=== PATIENT | female | born 1935 | race Caucasian/White ===

== ENCOUNTER 2016-10-27 16:01 | Emergency (ER) | payer MEDICARE, OTHER ==
[2016-10-27 16:23] VITALS: BP 152/98
[2016-10-27] MEDS ORDERED: DIPHTH,PERTUSS(ACELL),TET VAC 0.5 ML VIAL IM ONE ×2 (16:28→18:07)
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
== END 2016-10-27 19:04 | disposition home or self-care (01) ==
LOC: ER 16:01
PROC: 2W3CX1Z Immobilization of Right Lower Arm using Splint (ICD-10-PCS; principal; 2016-10-27)
DX: S52.501A Unspecified fracture of the lower end of right radius, initial encounter for closed fracture (principal); W19.XXXA Unspecified fall, initial encounter; Z23 Encounter for immunization; Z95.5 Presence of coronary angioplasty implant and graft

== ENCOUNTER 2017-10-03 11:55 | Emergency (ER) | payer MEDICARE, OTHER ==
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
[2017-10-03] MEDS ORDERED: ACETAMINOPHEN 500 MG TABLET PO ONE (14:44)
[2017-10-03 15:04] VITALS: BP 120/45
== END 2017-10-03 15:06 | disposition home or self-care (01) ==
LOC: ER 11:55
PROC: 2W3LX1Z Immobilization of Right Lower Extremity using Splint (ICD-10-PCS; principal; 2017-10-03)
DX: W10.1XXA Fall (on)(from) sidewalk curb, initial encounter; Y93.9 Activity, unspecified; S60.222A Contusion of left hand, initial encounter; S00.83XA Contusion of other part of head, initial encounter; S09.90XA Unspecified injury of head, initial encounter; Y92.480 Sidewalk as the place of occurrence of the external cause; Z86.73 Personal history of transient ischemic attack (TIA), and cerebral infarction without residual deficits; S82.034A Nondisplaced transverse fracture of right patella, initial encounter for closed fracture

== ENCOUNTER 2020-04-12 06:27 | Inpatient (IN) ==
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
[2020-04-12 07:37] LABS: Mean Cell Volume 100.3 fl (78-100); Mean Corpuscular Hemoglobin 31.7 pg (27-31); Mean Corpuscular Hgb Conc 31.6 g/dl (32-36); Mean Platelet Volume 11.4 fl (8-12.5); Neutrophil # 7.8 K/mm3 (1.3-6.0); Neutrophil % 76.4 % (42-75.0); Platelet Count 157 K/mm3 (150-450); Red Blood Count 3.79 M/mm3 (4.2-5.4); Red Cell Distribution Width 13.5 % (11.5-14.0); White Blood Count 10.3 K/mm3 (4.0-10.5)
[2020-04-12] MEDS ORDERED: AMPICILLIN SODIUM/SULBACTAM NA 1.5 GM in NORMAL SALINE 100 ML IV SCH (07:45)
[2020-04-12 07:46] LABS: Prothrombin Time (Patient) 10.8 Seconds (9.1-10.7)
[2020-04-12 07:49] LABS: Albumin * 3.4 gm/dl (3.4-5.0); Anion Gap 12.2 mmol/L (6.8-13.8); BUN/Creatinine Ratio 22.2 (9.0-21.6); Bilirubin, Total 0.4 mg/dL (0.0-1.1); Ca. Corrected For Albumin 9.7 mg/dL (8.4-10.2); Calcium * 9.5 mg/dL (7.9-10.9); Carbon Dioxide 30.8 mmol/L (24-32.6); Total Protein 6.9 gm/dL (6.2-8.2)
[2020-04-12 07:51] LABS: INR 1.09 INR (0.92-1.08); Partial Thrombolplastin Time 24.6 Seconds (24-32)
[2020-04-12 08:02] LABS: Urine Bilirubin Negative (NEGATIVE); Urine Blood Negative /ul (NEGATIVE); Urine Ketone Negative (NEGATIVE); Urine Nitrite Negative (NEGATIVE); Urine Protein Negative (NEGATIVE); Urine Specific Gravity >=1.030 SP.GR. (1.005-1.010); Urine Urobilinogen Normal (NORMAL); Urine pH 5.5 pH (5.0-7.0)
[2020-04-12] MEDS ORDERED: ACETAMINOPHEN 1,000 MG/100 ML BTL IV PRN (08:08)
[2020-04-12 08:09] LABS: Urine Appearance Clear (CLEAR); Urine Bacteria TRACE; Urine Color Yellow; Urine RBC None Seen /hpf (0-5); Urine WBC 0-5 /hpf (0-5)
[2020-04-12] MEDS: RINGER'S SOLUTION,LACTATED 1,000 ML IV PRN ×3 (08:12→22:47)
[2020-04-12] MEDS ORDERED: HEPARIN SODIUM,PORCINE 5,000 UNITS/ML VIAL SC SCH (08:15)
--- NOTE | 2020-04-12 09:54 | HP ---
Chief Complaint - Chief Complaint Date of Service: 04/12/20 Time of Service: 08:40 Chief Complaint: Left hip pain after a fall. History of Present Illness: Katheryn Simmons is an 84-year-old female patient of Dr. Saul Garcia DO, who fell at home injuring her left hip. She was brought to ER per EMS where x- rays revealed she has a displaced femoral neck fracture of the hip. A chest x- ray (AP portable) was done. It is a slightly rotated film. However, there is a mass versus pneumonia in the right hilar area. Since she has no clinical signs or symptoms of pneumonia I suspect that this is a mass-effect. She has a history of atrial fibrillation but only takes aspirin. She has had a rise in her creatinine and a fall in her EGFR from her usual baseline. Creatinine is 1.6 and EGFR 32 on admission. She is getting some lactated Ringer's solution and I will recheck that at noon. She needs a CT scan of her chest preferably with contrast but until her kidney function improves I will delay that. Medically, she is very stable and in no distress. She is hard of hearing but understands when she can hear and responds appropriately. Her daughter is here with her and has been a great help in getting her to understand our questions and statements. Orthopedics has been consulted and they plan to take her to surgery tomorrow pending medical clearance. She has been started on heparin 5000 units twice daily. I will also have her put on SCDs while in bed. I have reconciled her medicines. I have held her supplements and her hydrochlorothiazide but allowed her her other morning medicines. Medical History (Last Reviewed 04/12/20 @ 07:16 by Calvin Aquino MD) Hypertension (Chronic) Hypercholesteremia (Chronic) Atrial fibrillation (Inactive) Abdominal aortic aneurysm (Chronic) Vertigo Vertigo, benign paroxysmal Benign paroxysmal positional vertigo Chest pain in adult Contusion of foot, right Facial contusion Hand contusion Head injury Patella fracture Radius fracture Surgical History: Surgical History (Last Reviewed 04/12/20 @ 07:16 by Calvin Aquino MD) History of appendectomy Onset Date: ~1947 History of basal cell carcinoma excision Onset Date: ~2008 History of cataract extraction Onset Date: ~2006 History of colonoscopy Onset Date: ~2003 History of colonoscopy Onset Date: ~2008 History of lumpectomy of right breast Onset Date: ~1977 History of total vaginal hysterectomy (TVH) Onset Date: ~1971 Family History: Family History (Last Reviewed 04/12/20 @ 07:16 by Calvin Aquino MD) Father , age 54 DVT (deep venous thrombosis) Mother , age 96 Hypertension CAD (coronary artery disease) Social History: (Last Reviewed 04/12/20 @ 07:16 by Calvin Aquino MD) Social History: adopted: No group home: No Marital status: lives independently: Yes household members: spouse current occupational 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 Highest education level completed: high school graduate Service: No Tobacco: Smoking Status: Never smoker Alcohol: alcohol intake: never Substance Use: substance use type: does not use Dietary Habits: well-balanced diet: daily or most days caffeine: No Amber/Methodist: special amber needs: No Review Of Systems (GEN) - Review of Systems Generalized/Overall Review: Present: Weakness, Fatigue EENTM: Present: No Symptoms Reported Respiratory: Present: No Symptoms Reported Cardiac: Present: Palpitations Abdominal: Present: No Symptoms Reported Genitourinary: Present: No Symptoms Reported Musculoskeletal: Present: Joint Pain - Due to left hip fracture Neurological: Present: No Symptoms Reported Skin: Present: No Symptoms Reported Endocrine: Present: No Symptoms Reported Immunizations: IMMUNIZATION HX Immunizations Up to Date Yes History of Influenza Vaccine Yes Hx Pneumococcal Vaccination Yes Allergies/Adverse Reactions: Allergies Allergy/AdvReac Type Severity Reaction Status Date / Time ciprofloxacin [From Cipro] Allergy Verified 04/12/20 06:43 ciprofloxacin HCl Allergy Verified 04/12/20 06:43 [From Cipro] Sulfa (Sulfonamide Allergy Verified 04/12/20 06:43 Antibiotics) Home Medications: HOME MEDICATIONS Aspirin 325 mg PO DAILY 07/14/14 [Last Taken 07/14/14] Calc/D3/Mag/Zn/Isadora/Theron/[place] [Calcium 600 mg Plus Vit D Tab] 1 ea PO DAILY 07/14/14 [Last Taken 07/14/14] allopurinol 300 mg tablet 300 mg PO DAILY #90 tab 12/26/19 [Last Taken Unknown] hydrochlorothiazide 25 mg tablet 25 mg PO DAILY #90 tab 12/26/19 [Last Taken Unknown] lisinopril 40 mg tablet 40 mg PO DAILY #90 tab 12/26/19 [Last Taken Unknown] metoprolol tartrate 50 mg tablet 50 mg PO BID #180 tab 12/26/19 [Last Taken Unknown] ferrous sulfate 325 mg (65 mg iron) tablet 325 mg PO DAILY #30 tab 02/26/20 [Last Taken Unknown] Exam - Exam Vital Signs: Vital Signs - Last Taken Temp 36.2 C 04/12/20 08:41 Pulse 85 04/12/20 08:45 Resp 16 04/12/20 08:45 BP 133/51 04/12/20 08:41 Pulse Ox 95 04/12/20 08:45 Constitutional: Present: Alert, Oriented x3, Cooperative, Well developed, Well nourished, No distress, Elderly ENT Exam: Present: normal ENT inspection, hearing grossly normal, pharynx normal, TMs normal Eye Exam: bilateral eye: normal inspection, PERRL, EOMI Neck: Present: non-tender, limited range of motion Back Exam: Present: normal inspection, no CVA tenderness, no vertebral tenderness Breasts: Present: Exam deferred Respiratory: Present: chest non-tender, lungs clear, normal breath sounds, no respiratory distress, no accessory muscle use Cardiovascular/Chest: Present: normal peripheral pulses, no chest tenderness, no edema, no gallop, no JVD, no murmur, no rub, irregularly irregular Peripheral Pulses: carotid (R): 2+, carotid (L): 2+, radial (R): 2+, radial (L): 2+ Abdomen: Present: Normal bowel sounds, soft, nontender, nondistended, no rebound tenderness, no hepatospenomegaly, no masses /Rectal: Present: Exam deferred Extremity: Present: normal capillary refill, other - There is pain on palpation over the left hip and the left leg is shortened and externally rotated Skin Exam: Present: normal color, warm/dry, no cyanosis Lymphatic: Present: no adenopathy Neurologic: 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: 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 tested, normal cerebellar test, no motor/sensory deficits, alert, normal mood/affect, other - Very hard of hearing Appearance: Present: appropriate appearance, appropriate insight, neat Eye contact: Present: cooperative, good eye contact, normal speech Thoughts: Present: normal thought pattern, no apparent hallucination Diagnostic Studies: Abnormal Lab Results 04/12/20 04/12/20 04/12/20 Range/Units 07:25 07:25 07:25 RBC 3.79 L (4.2-5.4) M/mm3 Hgb 12.0 L (12.5-16.0) gm/dL MCV 100.3 H (78-100) fl MCH 31.7 H (27-31) pg MCHC 31.6 L (32-36) g/dl Immature Gran % (Auto) 0.70 H (0.001-0.429) % Immature Gran # (Auto) 0.07 H (0.000-0.0310) K/mm3 Neutrophils % 76.4 H (42-75.0) % Lymphocytes % 12.2 L (20-51) % Eosinophils % 3.4 H (0.0-3.0) % Neutrophils # 7.8 H (1.3-6.0) K/mm3 Lymphocytes # 1.25 L (1.5-3.5) k/mm3 PT 10.8 H (9.1-10.7) Seconds INR (Anticoag Therapy) 1.09 H (0.92-1.08) INR Sodium 144 H (132-142) mmol/L Plasma Sodium 144 H (130-142) mmol/L BUN 36 H (3-23) mg/dL Creatinine 1.62 H D (0.4-1.4) mg/dL Est GFR (Non-Af Amer) 32 L D (60-130) mL/min BUN/Creatinine Ratio 22.2 H (9.0-21.6) Random Glucose 117 H (70-110) mg/dL ALT 12 L (19-67) U/L Laboratory Results WBC 10.3 K/mm3 (4.0-10.5) 04/12/20 07:25 RBC 3.79 M/mm3 (4.2-5.4) L 04/12/20 07:25 Hgb 12.0 gm/dL (12.5-16.0) L 04/12/20 07:25 Hct 38.0 % (37.0-47.0) 04/12/20 07:25 MCV 100.3 fl (78-100) H 04/12/20 07:25 MCH 31.7 pg (27-31) H 04/12/20 07:25 MCHC 31.6 g/dl (32-36) L 04/12/20 07:25 RDW 13.5 % (11.5-14.0) 04/12/20 07:25 Plt Count 157 K/mm3 (150-450) 04/12/20 07:25 MPV 11.4 fl (8-12.5) 04/12/20 07:25 Immature Gran % (Auto) 0.70 % (0.001-0.429) H 04/12/20 07:25 Immature Gran # (Auto) 0.07 K/mm3 (0.000-0.0310) H 04/12/20 07:25 Neutrophils % 76.4 % (42-75.0) H 04/12/20 07:25 Lymphocytes % 12.2 % (20-51) L 04/12/20 07:25 Monocytes % 6.8 % (0.0-9) 04/12/20 07:25 Eosinophils % 3.4 % (0.0-3.0) H 04/12/20 07:25 Basophils % 0.5 % (0.0-1.0) 04/12/20 07:25 Nucleated RBC % 0.0 k/mm3 (0-1) 04/12/20 07:25 Neutrophils # 7.8 K/mm3 (1.3-6.0) H 04/12/20 07:25 Lymphocytes # 1.25 k/mm3 (1.5-3.5) L 04/12/20 07:25 Monocytes # 0.7 k/mm3 (0.0-1.0) 04/12/20 07:25 Eosinophils # 0.4 k/mm3 (0.0-0.7) 04/12/20 07:25 Absolute Basophils 0.1 k/mm3 (0.0-0.1) 04/12/20 07:25 PT 10.8 Seconds (9.1-10.7) H 04/12/20 07:25 INR (Anticoag Therapy) 1.09 INR (0.92-1.08) H 04/12/20 07:25 PTT ([place]) 24.6 Seconds (24-32) 04/12/20 07:25 Sodium 144 mmol/L (132-142) H 04/12/20 07:25 Plasma Sodium 144 mmol/L (130-142) H 04/12/20 07:25 Potassium 4.0 mmol/L (3.4-4.6) 04/12/20 07:25 Chloride 105 mmol/L (97-106) 04/12/20 07:25 Carbon Dioxide 30.8 mmol/L (24-32.6) 04/12/20 07:25 Anion Gap 12.2 mmol/L (6.8-13.8) 04/12/20 07:25 BUN 36 mg/dL (3-23) H 04/12/20 07:25 Creatinine 1.62 mg/dL (0.4-1.4) H D 04/12/20 07:25 Est GFR (Non-Af Amer) 32 mL/min (60-130) L D 04/12/20 07:25 BUN/Creatinine Ratio 22.2 (9.0-21.6) H 04/12/20 07:25 Random Glucose 117 mg/dL (70-110) H 04/12/20 07:25 Calcium 9.5 mg/dL (7.9-10.9) 04/12/20 07:25 Calcium Adj for Albumin 9.7 mg/dL (8.4-10.2) 04/12/20 07:25 Total Bilirubin 0.4 mg/dL (0.0-1.1) 04/12/20 07:25 AST 15 U/L (0-48) 04/12/20 07:25 ALT 12 U/L (19-67) L 04/12/20 07:25 Alkaline Phosphatase 75 U/L (50-170) 04/12/20 07:25 Total Protein 6.9 gm/dL (6.2-8.2) 04/12/20 07:25 Albumin 3.4 gm/dl (3.4-5.0) 04/12/20 07:25 TSH 3.584 uIU/mL (0.358-3.74) 04/12/20 07:25 Urine Color Yellow 04/12/20 07:52 Urine Appearance Clear (CLEAR) 04/12/20 07:52 Urine pH 5.5 pH (5.0-7.0) 04/12/20 07:52 Ur Specific [place] >=1.030 SP.GR. (1.005-1.010) 04/12/20 07:52 Urine Protein Negative mg/dL (NEGATIVE) 04/12/20 07:52 Urine Glucose (UA) Negative mg/dL (NEGATIVE) 04/12/20 07:52 Urine Ketones Negative mg/dL (NEGATIVE) 04/12/20 07:52 Urine Blood Negative /ul (NEGATIVE) 04/12/20 07:52 Urine Nitrate Negative (NEGATIVE) 04/12/20 07:52 Urine Bilirubin Negative mg/dl (NEGATIVE) 04/12/20 07:52 Urine Urobilinogen Normal EU/dl (NORMAL) 04/12/20 07:52 Ur Leukocyte Esterase Negative /ul (NEGATIVE) 04/12/20 07:52 Urine RBC None seen /hpf (0-5) 04/12/20 07:52 Urine WBC 0-5 /hpf (0-5) 04/12/20 07:52 Ur Epithelial Cells 0-5 /hpf (0-5) 04/12/20 07:52 Urine Bacteria Trace (NONE) 04/12/20 07:52 Urine Culture Comments No culture indicated 04/12/20 07:52 SARS-CoV-2 (PCR) Not detected (ND) 04/12/20 07:45 Assessment/Plan - Narrative Narrative: 1. Orthopedics to surgically manage her left hip fracture 2. Medical management will consist of continuing her usual home meds, evaluating the chest mass, and continuing with anticoagulation. 3. Postoperatively consider the apixaban for stroke prevention due to her atrial fibrillation. She is only on aspirin at this time. 4. PT and OT to evaluate pre-and postoperatively tomorrow. 5. Return her care to Dr. Garcia tomorrow morning. 6. At this time she is medically approved for her anticipated ORIF left hip. - Assessment/Plan (1) Displaced fracture of left femoral neck Problem: Acute (2) Hilar mass Problem: Suspected (3) Hypertension Problem: Chronic Qualifiers: Hypertension type: essential hypertension Qualified Code(s): I10 - Essential (primary) hypertension (4) Hypercholesteremia Problem: Chronic (5) Atrial fibrillation Problem: Inactive Qualifiers: Atrial fibrillation type: permanent Qualified Code(s): I48.21 - Permanent atrial fibrillation (6) Abdominal aortic aneurysm Problem: Chronic Qualifiers: Presence of rupture: without rupture Qualified Code(s): I71.4 - Abdominal aortic aneurysm, without rupture
[2020-04-12] MEDS: LISINOPRIL 40 MG TABLET PO SCH (10:21)
[2020-04-12] MEDS: METOPROLOL TARTRATE 50 MG TABLET PO SCH ×2 (10:21→20:56)
[2020-04-12 12:04] LABS: Anion Gap 12.5 mmol/L (6.8-13.8); BUN/Creatinine Ratio 20.9 (9.0-21.6); Carbon Dioxide 28.3 mmol/L (24-32.6); Estimated Creat Clear 25.5; Phosphorus 3.6 mg/dL (2.2-4.2); Potassium 3.8 mmol/L (3.4-4.6)
[2020-04-12] MEDS: AMPICILLIN SODIUM/SULBACTAM NA 1.5 GM in NORMAL SALINE 100 ML IV SCH ×2 (14:02→19:32)
[2020-04-12] MEDS ORDERED: oxyCODONE HCL/ACETAMINOPHEN 1 TAB TABLET PO PRN (17:24)
[2020-04-12] MEDS ORDERED: MORPHINE SULFATE 4 MG/ML SYRG IV PRN (17:24)
[2020-04-13] MEDS: AMPICILLIN SODIUM/SULBACTAM NA 1.5 GM in NORMAL SALINE 100 ML IV SCH ×2 (01:59→07:29)
[2020-04-13 06:41] LABS: Hematocrit 29.8 % (37.0-47.0); Hemoglobin 9.4 gm/dL (12.5-16.0); Mean Corpuscular Hemoglobin 31.5 pg (27-31); Mean Corpuscular Hgb Conc 31.5 g/dl (32-36); Mean Platelet Volume 11.5 fl (8-12.5); Neutrophil # 6.9 K/mm3 (1.3-6.0); Platelet Count 131 K/mm3 (150-450); Red Blood Count 2.98 M/mm3 (4.2-5.4); Red Cell Distribution Width 13.8 % (11.5-14.0); White Blood Count 9.2 K/mm3 (4.0-10.5)
[2020-04-13 06:54] LABS: Albumin * 2.7 gm/dl (3.4-5.0); Anion Gap 11.2 mmol/L (6.8-13.8); BUN/Creatinine Ratio 19.4 (9.0-21.6); Bilirubin, Total 0.6 mg/dL (0.0-1.1); Ca. Corrected For Albumin 9.2 mg/dL (8.4-10.2); Calcium * 8.5 mg/dL (7.9-10.9); Carbon Dioxide 28.4 mmol/L (24-32.6); Potassium 4.6 mmol/L (3.4-4.6); Total Protein 5.3 gm/dL (6.2-8.2)
[2020-04-13] MEDS: RINGER'S SOLUTION,LACTATED 1,000 ML IV PRN ×3 (07:28→17:04)
[2020-04-13] MEDS ORDERED: ceFAZolin SODIUM 1 GM in DEXTROSE 5 % IN WATER 100 ML IV ONE ×2 (08:07)
--- NOTE | 2020-04-13 08:11 | CONS ---
[facility] - General Date of Service: 04/13/20 Narrative: Patient is a poor historian. She does report that she was in her bathroom and she got off the toilet and slipped and fell resulting in her injury. She presented to our emergency department yesterday morning was evaluated by and found to have a displaced left intertrochanteric hip fracture. I cannot get much other history from her other than she is ready for her bath. Source: patient, other - Chart - History of Present Illness Allergies/Adverse Reactions: Allergies ciprofloxacin [From Cipro] Allergy (Verified 04/12/20 06:43) ciprofloxacin HCl [From Cipro] Allergy (Verified 04/12/20 06:43) Sulfa (Sulfonamide Antibiotics) Allergy (Verified 04/12/20 06:43) Home Medications: Home Medications Medication Instructions Recorded Last Taken Aspirin 325 mg PO DAILY 07/14/14 07/14/14 Calc/D3/Mag/Zn/Isadora/Theron/[place] 1 ea PO DAILY 07/14/14 07/14/14 [Calcium 600 mg Plus Vit D Tab] allopurinol 300 mg tablet 300 mg PO DAILY #90 tab 12/26/19 Unknown hydrochlorothiazide 25 mg tablet 25 mg PO DAILY #90 tab 12/26/19 Unknown lisinopril 40 mg tablet 40 mg PO DAILY #90 tab 12/26/19 Unknown metoprolol tartrate 50 mg tablet 50 mg PO BID #180 tab 12/26/19 Unknown ferrous sulfate 325 mg (65 mg 325 mg PO DAILY #30 tab 02/26/20 Unknown iron) tablet Procedures Immobilization of Right Lower Arm using Splint (10/27/16) Medications - Medications Current Medications: Current Medications Ampicillin Sodium/Sulbactam (Sodium 1.5 gm/ Sodium Chloride) 100 mls @ 200 mls/hr IV Q6H ARTHUR; Protocol Stop: 05/12/20 13:46 Last Admin: 04/13/20 07:29 Dose: 200 mls/hr Documented by: Lactated Ringer's (Lactated Ringers) 1,000 mls @ 125 mls/hr IV .Q8H PRN PRN Reason: HYDRATION Stop: 05/12/20 16:43 Last Admin: 04/13/20 07:28 Dose: 125 mls/hr Documented by: Lisinopril (Zestril) 40 mg PO DAILY ARTHUR Stop: 05/12/20 09:31 Last Admin: 04/12/20 10:21 Dose: 40 mg Documented by: Metoprolol Tartrate (Lopressor) 50 mg PO BID ARTHUR Stop: 05/12/20 09:31 Last Admin: 04/12/20 20:56 Dose: 50 mg Documented by: Physical Examination - Exam Narrative: Left hip is externally rotated and shortened. She reports severe pain with palpation in the inguinal area. She does not follow commands very well but she is wiggling her toes on her left foot. She does report she can feel me touching her left foot. Dorsalis pedis pulse intact. Calf is supple. X-rays reviewed show a comminuted intertrochanteric left hip fracture. Vital Signs: Vital Signs - Last Taken Temp 35.6 C L 04/13/20 06:27 Pulse 78 04/13/20 06:27 Resp 18 04/13/20 06:27 BP 136/86 04/13/20 06:27 Pulse Ox 96 04/13/20 06:27 O2 Oxygen Delivery Method Room Air - Results and Findings: Lab/Microbiology results last 24 hrs: Abnormal/Pending Laboratory Last 24 HRS 04/13/20 04/13/20 04/12/20 06:30 06:30 11:49 RBC 2.98 L Hgb 9.4 L Hct 29.8 L MCH 31.5 H MCHC 31.5 L Plt Count 131 L Immature Gran % (Auto) 0.70 H Immature Gran # (Auto) 0.06 H Lymphocytes % 13.7 L Neutrophils # 6.9 H Lymphocytes # 1.26 L Sodium 143 H Plasma Sodium 143 H BUN 26 H 34 H Creatinine 1.63 H Est GFR (Non-Af Amer) 40 L D 32 L Random Glucose 121 H ALT 9 L Total Protein 5.3 L Albumin 2.7 L 3.0 L - Assessments/Findings (1) Closed left hip fracture Diagnosis(s): Discussed with patient and marked her hip. We will discuss with her family when they are in later this morning as they are currently not here. Will obtain consents from power of assistant district attorney. Plan is for closed reduction cephalo-medullary internal fixation this afternoon. At this time patient's COVID test came back negative and she has been cleared by Dr. Dos Santos. Problem: Acute
[2020-04-13] MEDS: METOPROLOL TARTRATE 50 MG TABLET PO SCH ×2 (09:15→20:57)
[2020-04-13] MEDS ORDERED: ceFAZolin SODIUM 1 GM VIAL ONE (10:49)
[2020-04-13] MEDS ORDERED: BUPIVACAINE HCL/PF 10 ML VIAL ONE (11:00)
[2020-04-13] MEDS ORDERED: PROPOFOL VIAL IV ONE (11:00)
--- NOTE | 2020-04-13 11:02 | PN ---
Subjective - Date and Time Seen Date: 04/13/20 Time: 09:20 Subjective Narrative: Katheryn has had an uneventful night. She only has pain when she is changing positions. She has needed surprisingly very little pain medication. She is scheduled for her ORIF of the left hip this afternoon. I am seeing her today in Dr. Garcia's absence. Lab work: Hemoglobin has dropped to 9.4 g from 12 g on admission. Her albumin has decreased to 2.7 which is down from 3.0. Her EGFR has improved to 40 which is up from 32 and the creatinine has declined to 1.34 from 1.63. Her vital signs show her afebrile a temperature of 35.6 Celsius, pulse 78, respiration 18 and unlabored, BP 136/86. She is awake and alert and in good spirits. She is very hard of hearing and hard to communicate with. She is very lucid however and answers appropriately when she understands. She is in no distress at the time of my exam this morning. After reassessing her this morning she remains medically cleared for her anticipated surgery this afternoon. Objective - Review of Systems Generalized/Overall Review: Reports: No Symptoms Reported EENTM: Reports: No Symptoms Reported Respiratory: Reports: No Symptoms Reported Cardiac: Reports: No Symptoms Reported Abdominal: Reports: No Symptoms Reported Genitourinary Symptoms: Reports: No Symptoms Reported, Other - She has a Metz catheter to dependent drainage Musculoskeletal Complaints: Reports: Joint Pain - Left hip 2 fracture Neurological: Reports: No Symptoms Reported Skin: Reports: No Symptoms Reported Endocrine: Reports: No Symptoms Reported - Vitals Vitals: Last Vital Signs Temp 37.2 C 04/13/20 10:07 Pulse 77 04/13/20 10:07 Resp 18 04/13/20 10:07 BP 140/79 04/13/20 10:07 Pulse Ox 97 04/13/20 10:07 - Abnormal Lab Findings Abnormal Lab Findings: Abnormal Lab Results 04/12/20 04/13/20 04/13/20 Range/Units 11:49 06:30 06:30 RBC 2.98 L (4.2-5.4) M/mm3 Hgb 9.4 L (12.5-16.0) gm/dL Hct 29.8 L (37.0-47.0) % MCH 31.5 H (27-31) pg MCHC 31.5 L (32-36) g/dl Plt Count 131 L (150-450) K/mm3 Immature Gran % (Auto) 0.70 H (0.001-0.429) % Immature Gran # (Auto) 0.06 H (0.000-0.0310) K/mm3 Lymphocytes % 13.7 L (20-51) % Neutrophils # 6.9 H (1.3-6.0) K/mm3 Lymphocytes # 1.26 L (1.5-3.5) k/mm3 Sodium 143 H (132-142) mmol/L Plasma Sodium 143 H (130-142) mmol/L BUN 34 H 26 H (3-23) mg/dL Creatinine 1.63 H (0.4-1.4) mg/dL Est GFR (Non-Af Amer) 32 L 40 L D (60-130) mL/min Random Glucose 121 H (70-110) mg/dL ALT 9 L (19-67) U/L Total Protein 5.3 L (6.2-8.2) gm/dL Albumin 3.0 L 2.7 L (3.4-5.0) gm/dl - Exam Constitutional: Present: Alert, Oriented x3, Cooperative, Well developed, Well nourished ENT Exam: Present: normal ENT inspection, pharynx normal, TMs normal, hard of hearing Neck: Present: non-tender, supple, normal inspection, trachea midline, limited range of motion Breasts: Present: Exam deferred Respiratory: Present: chest non-tender, lungs clear, normal breath sounds, no respiratory distress, no accessory muscle use Cardiovascular/Chest: Present: normal peripheral pulses, regular rate, rhythm, no chest tenderness Abdomen: Present: Normal bowel sounds, soft, nontender, nondistended, no rebound tenderness, no hepatospenomegaly, no masses /Rectal: Present: Exam deferred, External genitalia normal Extremity: Present: normal range of motion, non-tender, normal inspection, no pedal edema, no calf tenderness, normal capillary refill Skin Exam: Present: warm/dry, pallor - Probably due to drop in hemoglobin which is currently 9.4 g Lymphatic: Present: no adenopathy 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: 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: 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 Reviewed morning lab and other than the drop in hemoglobin there are no significant changes. Hemoglobin will be 9.4 g going into surgery. 2. Examination of heart and lungs is clear this morning and there are no new findings. 3. She is medically approved and cleared for her planned ORIF of left hip by Dr. Junior this afternoon. 4. Morning lab ordered - Problems/Diagnosis (1) Displaced fracture of left femoral neck Problem: Acute (2) Hilar mass Problem: Suspected (3) Hypertension Problem: Chronic Qualifiers: Hypertension type: essential hypertension Qualified Code(s): I10 - Essential (primary) hypertension (4) Hypercholesteremia Problem: Chronic (5) Atrial fibrillation Problem: Inactive Qualifiers: Atrial fibrillation type: permanent Qualified Code(s): I48.21 - Permanent atrial fibrillation (6) Abdominal aortic aneurysm Problem: Chronic Qualifiers: Presence of rupture: without rupture Qualified Code(s): I71.4 - Abdominal aortic aneurysm, without rupture (7) Acute post-hemorrhagic anemia Problem: Acute
--- NOTE | 2020-04-13 11:09 | ANES ---
Anesthesia Pre Procedure Eval Vitals/Labs: Last Vital Signs Temp 37.2 C 04/13/20 10:07 Pulse 77 04/13/20 10:07 Resp 18 04/13/20 10:07 BP 140/79 04/13/20 10:07 Pulse Ox 97 04/13/20 10:07 HOME MEDICATIONS Aspirin 325 mg PO DAILY 07/14/14 [Last Taken 07/14/14] Calc/D3/Mag/Zn/Isadora/Theron/[place] [Calcium 600 mg Plus Vit D Tab] 1 ea PO DAILY 07/14/14 [Last Taken 07/14/14] allopurinol 300 mg tablet 300 mg PO DAILY #90 tab 12/26/19 [Last Taken Unknown] hydrochlorothiazide 25 mg tablet 25 mg PO DAILY #90 tab 12/26/19 [Last Taken Unknown] lisinopril 40 mg tablet 40 mg PO DAILY #90 tab 12/26/19 [Last Taken Unknown] metoprolol tartrate 50 mg tablet 50 mg PO BID #180 tab 12/26/19 [Last Taken Unknown] ferrous sulfate 325 mg (65 mg iron) tablet 325 mg PO DAILY #30 tab 02/26/20 [Last Taken Unknown] Allergies/Adverse Reactions: Allergies Allergy/AdvReac Type Severity Reaction Status Date / Time ciprofloxacin [From Cipro] Allergy Verified 04/12/20 06:43 ciprofloxacin HCl Allergy Verified 04/12/20 06:43 [From Cipro] Sulfa (Sulfonamide Allergy Verified 04/12/20 06:43 Antibiotics) - Planned Procedure Planned Procedure: Left Hip Fracture,RML Pneumonia,DEVANG Medication List Reviewed:: Yes Allergies Verified: Yes Medical History (Last Reviewed 04/13/20 @ 11:08 by David Castro CRNA) Hypertension (Chronic) Hypercholesteremia (Chronic) Atrial fibrillation (Inactive) Abdominal aortic aneurysm (Chronic) Vertigo Vertigo, benign paroxysmal Benign paroxysmal positional vertigo Chest pain in adult Contusion of foot, right Facial contusion Hand contusion Head injury Patella fracture Radius fracture Surgical History (Last Reviewed 04/13/20 @ 11:08 by aDvid Castro CRNA) History of appendectomy Onset Date: ~1947 History of basal cell carcinoma excision Onset Date: ~2008 History of cataract extraction Onset Date: ~2006 History of colonoscopy Onset Date: ~2003 History of colonoscopy Onset Date: ~2008 History of lumpectomy of right breast Onset Date: ~1977 History of total vaginal hysterectomy (TVH) Onset Date: ~1971 Family History (Last Reviewed 04/13/20 @ 11:08 by David Castro CRNA) Father , age 54 DVT (deep venous thrombosis) Mother , age 96 Hypertension CAD (coronary artery disease) - Family Anesthesia History Family History:: no untoward family reactions to anesthesia - Airway/Neck/Teeth Within Normal Limits:: Yes Teeth Condition: intact Neck Exam: limited range of motion Mallampatti Score: 3 Thyromental (T-M) distance: > 6 cm Mandibulo Hyoid distance: > 3 cm - Respiratory Respiratory Physical: lungs clear Smoking Status: Never smoker Sleep Apnea currently treated: No Sleep Apnea by current assessment: No - Cardiovascular Cardiac History: arrhythmia, hypertension Tolerate Activity: Fair Heart Sounds: Irregular - Gastrointestinal NPO since: MN - Anesthesia Assessment and Plan ASA Class: PS, III Anesthesia Type Plan: Spinal Planned difficult intubation/equipment available: No
--- NOTE | 2020-04-13 12:45 | OR ---
Operative Report - Dictated Report Narrative: Date: 04/13/2020 Surgeon: Alexis Kunz M.D. Cold Rolling Supervisor: Cleveland Power PA-C (provided an essential set of skilled educated handset assisted with transfer, positioning, prepping, draping, placement of instruments, insertion of implants, irrigation, closure wounds, and placement of dressings all which could not be performed by the available surgical crew) Preoperative diagnosis: Closed left comminuted intertrochanteric femur fracture Postoperative diagnosis: Closed left comminuted intertrochanteric femur fracture Operations and procedures: 1. Closed reduction, cephalo-medullary fixation left intertrochanteric femur fracture 2. Intraoperative interpretation of radiographs Anesthesia: Spinal Specimens: None Estimated blood loss: 50 milliliters Retained implants: [employer] Trigen InterTAN 130 degree size 11.5 mm by 20 centimeter nail with 110 millimeter lag screw and 105 millimeter compression screw, with distal locking screw Complications: None Indications for procedure: Mrs. Bui is an 84-year-old female who injured the left leg after falling off the toilet at home. They were admitted to the hospital after being evaluated in the emergency department. Once the medical provider felt that they were stable for surgical treatment, the risks and benefits alternatives were discussed. The risks of , blood clots, bleeding, infection, nerve/tendon/blood vessel injury, malunion, nonunion, failure of implants, painful implants, arthrosis, a nd need for additional procedures were discussed. The extremity was marked and consent was obtained on the floor. Procedure: After marking the operative extremity on the floor, the patient was taken to the operating room. A timeout was performed. IV antibiotics consisting of Ancef were administered. A spinal anesthetic was induced by anesthesia, and the patient was then placed onto a fracture table with a well-padded perineal post. The nonoperative leg was placed in a well-padded traction boot in slight extension without any traction with an SCD on the leg. The operative leg was placed in a well-padded traction boot. Longitudinal traction, internal rotation, and flexion were utilized in order to reduce the fracture. Preliminary images were attained utilizing C-arm in both the AP and lateral views. This confirmed that we had obtained adequate visualization of the fracture as well as reduction. Next the hip was then prepped and draped in a standard sterile fashion. Next the guidewire was placed percutaneously proximal to the greater trochanter to omayra a starting point at the tip of the greater trochanter centered on the lateral view. This was passed down to the level below the lesser trochanter. A scalpel was utilized in order to dissect down to the greater trochanter in order to place the soft tissue protector down to bone. The entry drill was then placed down the proximal femur to the level of the lesser trochanter. The proper size nail was then selected and impacted into place. The outrigger was utilized in order to confirm the appropriate depth of the nail. Using the alignment device on the outrigger, an incision was made over the lateral femur. Sharp dissection was carried through the iliotibial band down to the proximal femur. The guidewire was placed into the femoral head in a center- center position on AP and lateral views. The tip-apex distance of less than 25 mm combined was obtained. Once we felt that we had placed a guidewire in the ap propriate position, it was measured. Next the compression screw site was drilled through the lateral femoral cortex. This was then drilled down to the appropriate depth, again confirming that we are within the confines the bone. The derotational bar was then placed and the lag screw was drilled. The lag screw was then secured in place seating fully ensuring that we were within the confines of the bone. The compression screw was then inserted allowing for compression while releasing the traction on the leg. Using C-arm this was visualized to allow for compression across the fracture site. Once is felt that we had adequately stabilized the intertrochanteric fracture, the distal interlocking screw was placed in a dynamic position. It was confirmed to be the appropriate length and within the nail on both AP and lateral views. The nail was secured allowing for controlled compression and the outrigger was removed. The wounds were then thoroughly irrigated. Final images were obtain ed. The hip was placed through range of motion and showed no crepitance. The deep fascia was closed with 0 Vicryl, the subcutaneous tissue with 3-0 Vicryl, and the skin was closed with lexx. Sterile dressings of Xeroform, 4 x 4, and tape were applied. All sponge, sharp, and instrument counts were correct prior to closing the wounds. The patient was then awoken and transferred to the postanesthesia care unit in stable condition.
[2020-04-13] MEDS ORDERED: ONDANSETRON HCL/PF 2 MG/ML VIAL IV PRN (12:46)
[2020-04-13] MEDS ORDERED: MAGNESIUM HYDROXIDE 30 ML UDC PO PRN (12:46)
[2020-04-13] MEDS ORDERED: MAG HYDROX/ALUMINUM HYD/SIMETH 30 ML UDC PO PRN (12:46)
--- NOTE | 2020-04-13 13:09 | ANES ---
Post Anesthesia Discharge - Transfer of Care Transfer of Care handoff given to nurse: Yes - Discharge from PACU Discharge from PACU when meets criteria: Yes
--- NOTE | 2020-04-13 13:10 | ANES ---
Post Anesthesia Assessment - Vital Signs Vitals: Last Vital Signs Temp 37.2 C 04/13/20 10:07 Pulse 77 04/13/20 10:07 Resp 18 04/13/20 10:07 BP 140/79 04/13/20 10:07 Pulse Ox 97 04/13/20 10:07 Airway Patency: Normal - Mental Status Level Of Consciousness: Awake - Pain Level Pain Score: 0 - N/V Assessment Nausea/Vomiting Presence: None Dehydration:: No
[2020-04-13] MEDS: ceFAZolin SODIUM 1 GM in DEXTROSE 5 % IN WATER 50 ML IV SCH ×4 (14:55→20:55)
[2020-04-13] MEDS: LISINOPRIL 40 MG TABLET PO SCH (14:59)
[2020-04-13] MEDS: ALLOPURINOL 300 MG TABLET PO SCH (14:59)
[2020-04-13] MEDS: HYDROcodone/ACETAMINOPHEN 1 EACH TABLET PO PRN (18:08)
[2020-04-13] MEDS ORDERED: LORazepam 0.5 MG TABLET PO PRN (20:34)
[2020-04-13] MEDS: SENNOSIDES/DOCUSATE SODIUM 1 TAB TABLET PO SCH (20:53)
[2020-04-14] MEDS: RINGER'S SOLUTION,LACTATED 1,000 ML IV PRN (01:54)
[2020-04-14] MEDS: ceFAZolin SODIUM 1 GM in DEXTROSE 5 % IN WATER 50 ML IV SCH ×2 (01:55)
[2020-04-14] MEDS: HYDROcodone/ACETAMINOPHEN 1 EACH TABLET PO PRN ×2 (02:02→08:37)
[2020-04-14 06:41] LABS: Hematocrit 25.1 % (37.0-47.0); Hemoglobin 8.1 gm/dL (12.5-16.0); Mean Cell Volume 99.6 fl (78-100); Mean Corpuscular Hemoglobin 32.1 pg (27-31); Mean Corpuscular Hgb Conc 32.3 g/dl (32-36); Mean Platelet Volume 11.9 fl (8-12.5); Neutrophil # 9.3 K/mm3 (1.3-6.0); Neutrophil % 78.9 % (42-75.0); Platelet Count 114 K/mm3 (150-450); Red Blood Count 2.52 M/mm3 (4.2-5.4); Red Cell Distribution Width 13.6 % (11.5-14.0); White Blood Count 11.7 K/mm3 (4.0-10.5)
[2020-04-14 06:52] LABS: Albumin * 2.4 gm/dl (3.4-5.0); Anion Gap 10.1 mmol/L (6.8-13.8); BUN/Creatinine Ratio 17.3 (9.0-21.6); Bilirubin, Total 0.5 mg/dL (0.0-1.1); Ca. Corrected For Albumin 8.9 mg/dL (8.4-10.2); Calcium * 7.9 mg/dL (7.9-10.9); Potassium 4.1 mmol/L (3.4-4.6); Total Protein 5.4 gm/dL (6.2-8.2)
[2020-04-14] MEDS: METOPROLOL TARTRATE 50 MG TABLET PO SCH ×2 (08:39→20:54)
[2020-04-14] MEDS: ALLOPURINOL 300 MG TABLET PO SCH (08:40)
[2020-04-14] MEDS: RIVAROXABAN 20 MG TABLET PO SCH (08:40)
[2020-04-14] MEDS: LISINOPRIL 40 MG TABLET PO SCH (08:41)
--- NOTE | 2020-04-14 09:05 | PN ---
Subjective - Date and Time Seen Date: 04/14/20 Time: 08:15 Objective Objective Narrative: Patient does not respond to questions or commands appropriately. - Vitals Vitals: Last Vital Signs Temp 36.5 C 04/14/20 06:15 Pulse 81 04/14/20 08:41 Resp 18 04/14/20 06:15 BP 141/114 H 04/14/20 08:41 Pulse Ox 99 04/14/20 06:15 - Abnormal Lab Findings Abnormal Lab Findings: Abnormal Lab Results 04/14/20 04/14/20 Range/Units 06:30 06:30 WBC 11.7 H D (4.0-10.5) K/mm3 RBC 2.52 L (4.2-5.4) M/mm3 Hgb 8.1 L (12.5-16.0) gm/dL Hct 25.1 L (37.0-47.0) % MCH 32.1 H (27-31) pg Plt Count 114 L (150-450) K/mm3 Immature Gran % (Auto) 0.90 H (0.001-0.429) % Immature Gran # (Auto) 0.11 H (0.000-0.0310) K/mm3 Neutrophils % 78.9 H (42-75.0) % Lymphocytes % 9.8 L (20-51) % Monocytes % 9.3 H (0.0-9) % Neutrophils # 9.3 H (1.3-6.0) K/mm3 Lymphocytes # 1.15 L (1.5-3.5) k/mm3 Monocytes # 1.1 H (0.0-1.0) k/mm3 Est GFR (Non-Af Amer) 40 L (60-130) mL/min Random Glucose 129 H (70-110) mg/dL ALT 7 L (19-67) U/L Total Protein 5.4 L (6.2-8.2) gm/dL Albumin 2.4 L (3.4-5.0) gm/dl - Exam Exam Narrative: Bandages C/D/I. Patient does wiggle her toes. She is up in chair and is pleasant but confused. No distress. Cauti Physician Documentation - Urinary Catheter Management Urethral (Metz) Urethral Indwelling: Yes Date of Insertion: 04/12/20 Time of Insertion: 07:50 Assessment/Plan Plan Narrative: PT to work with mobilization, anticoagulation, patient appears to have adequate pain control at this time. - Problems/Diagnosis (1) Closed left hip fracture Problem: Acute
[2020-04-14] MEDS ORDERED: AZITHROMYCIN 250 MG TABLET PO ONE (12:07)
[2020-04-14] MEDS: SENNOSIDES/DOCUSATE SODIUM 1 TAB TABLET PO SCH (20:54)
--- NOTE | 2020-04-14 22:58 | PN ---
Subjective - Date and Time Seen Date: 04/14/20 Time: 12:15 Subjective Narrative: Katheryn was resting and awakens with verbal stimulus but falls back asleep quickly before answer questions. Nursing reports she has been like this and sometimes confused ever since getting percocet this morning. They have no further concerns. She has been accepted for SNF discharge tomorrow. WBC is elevated today. No reported shortness of breath or cough. Objective - Vitals Vitals: Last Vital Signs Temp 36.6 C 04/14/20 22:19 Pulse 76 04/14/20 22:19 Resp 18 04/14/20 22:19 BP 121/70 04/14/20 22:19 Pulse Ox 97 04/14/20 22:19 - Abnormal Lab Findings Abnormal Lab Findings: Abnormal Lab Results 04/14/20 04/14/20 Range/Units 06:30 06:30 WBC 11.7 H D (4.0-10.5) K/mm3 RBC 2.52 L (4.2-5.4) M/mm3 Hgb 8.1 L (12.5-16.0) gm/dL Hct 25.1 L (37.0-47.0) % MCH 32.1 H (27-31) pg Plt Count 114 L (150-450) K/mm3 Immature Gran % (Auto) 0.90 H (0.001-0.429) % Immature Gran # (Auto) 0.11 H (0.000-0.0310) K/mm3 Neutrophils % 78.9 H (42-75.0) % Lymphocytes % 9.8 L (20-51) % Monocytes % 9.3 H (0.0-9) % Neutrophils # 9.3 H (1.3-6.0) K/mm3 Lymphocytes # 1.15 L (1.5-3.5) k/mm3 Monocytes # 1.1 H (0.0-1.0) k/mm3 Est GFR (Non-Af Amer) 40 L (60-130) mL/min Random Glucose 129 H (70-110) mg/dL ALT 7 L (19-67) U/L Total Protein 5.4 L (6.2-8.2) gm/dL Albumin 2.4 L (3.4-5.0) gm/dl - Exam Constitutional: Present: Somnolent Respiratory: Present: lungs clear, normal breath sounds, no respiratory distress Cardiovascular/Chest: Present: regular rate, rhythm, no murmur Abdomen: Present: Normal bowel sounds, soft, nontender, nondistended Skin Exam: Present: normal color, warm/dry, no cyanosis Cauti Physician Documentation - Urinary Catheter Management Urethral (Metz) Urethral Indwelling: Yes Date of Insertion: 04/12/20 Time of Insertion: 07:50 Assessment/Plan Plan Narrative: WBC elevated today and chest xray with infiltrate vs hilar mass. Will treat as pneumonia. She is not overly symptomatic but perhaps this is secondary to age and is related to confusion and fall, although I suspect confusion and somnolence to be related to percocet. This is not hospital acquired if she has pneumonia as it was present on her initial chest xray on admission. Will treat with rocephin and azithromycin. Plan to discharge to SNF tomorrow. Recommended to nursing to limit percocet use as able. - Problems/Diagnosis (1) Closed left hip fracture Problem: Acute (2) Right middle lobe pneumonia Problem: Acute Qualifiers: Pneumonia type: aspiration pneumonia Aspiration pneumonia type: unspecified Qualified Code(s): J69.0 - Pneumonitis due to inhalation of food and vomit (3) Hilar mass Problem: Suspected (4) Altered mental status Problem: Acute
[2020-04-15] MEDS: ACETAMINOPHEN 500 MG TABLET PO PRN ×3 (01:17→20:36)
--- NOTE | 2020-04-15 08:56 | DS ---
(1) Closed left hip fracture Problem: Acute (2) Right middle lobe pneumonia Problem: Acute Qualifiers: Pneumonia type: due to unspecified organism Qualified Code(s): J18.9 - Pneumonia, unspecified organism (3) Hilar mass Problem: Suspected (4) Altered mental status Problem: Acute Date of Discharge:: 04/15/20 Hospital Course: Katheryn is an 84 yo female admitted with left hip fracture after a fall. She was medically cleared for surgery and had closed reduction, cephalo- medullary fixation of left intertrochanteric femur fracture repaired on 04/13/20. Overall she did well after surgery. She was quite somnolent after getting percocet. Her pain medications were changed to hydrocodone. On admission she also had a chest xray that showed possible right hilar infiltrate vs mass. She had an elevated WBC and was started on treatment for possible pneumonia with rocephin and azithromycin. I will treat her as a pneumonia and then repeat chest xray in a couple weeks. If this does not improve like a pneumonia then may need further evaluation as a mass. She is much more awake today and ready to continue therapy at [facility]. She will be discharged to SNF today. Procedures Performed: see notes below List Procedures: Operations and procedures: 1. (04/13/20) Closed reduction, cephalo-medullary fixation left intertrochanteric femur fracture Results and Findings: Lab Pending Results 04/12/20 07:25: WBC 10.3, RBC 3.79 L, Hgb 12.0 L, Hct 38.0, MCV 100.3 H, MCH 31.7 H, MCHC 31.6 L, RDW 13.5, Plt Count 157, MPV 11.4, Immature Gran % (Auto) 0.70 H, Immature Gran # (Auto) 0.07 H, Neutrophils % 76.4 H, Lymphocytes % 12.2 L, Monocytes % 6.8, Eosinophils % 3.4 H, Basophils % 0.5, Nucleated RBC % 0.0, Neutrophils # 7.8 H, Lymphocytes # 1.25 L, Monocytes # 0.7, Eosinophils # 0.4, Absolute Basophils 0.1 04/12/20 07:25: PT 10.8 H, INR (Anticoag Therapy) 1.09 H, PTT ([place]ricks) 24.6 04/12/20 07:25: Sodium 144 H, Plasma Sodium 144 H, Potassium 4.0, Chloride 105, Carbon Dioxide 30.8, Anion Gap 12.2, BUN 36 H, Creatinine 1.62 H D, Est GFR (Non-Af Amer) 32 L D, BUN/Creatinine Ratio 22.2 H, Random Glucose 117 H, Calcium 9.5, Calcium Adj for Albumin 9.7, Total Bilirubin 0.4, AST 15, ALT 12 L, Alkaline Phosphatase 75, Total Protein 6.9, Albumin 3.4 04/12/20 07:25: Blood Type O Negative, Antibody Screen Negative 04/12/20 07:25: TSH 3.584 04/12/20 07:45: SARS-CoV-2 (PCR) Not detected 04/12/20 07:52: Urine Color Yellow, Urine Appearance Clear, Urine pH 5.5, Ur Specific [place] >=1.030, Urine Protein Negative, Urine Glucose (UA) Negative, Urine Ketones Negative, Urine Blood Negative, Urine Nitrate Negative, Urine Bilirubin Negative, Urine Urobilinogen Normal, Ur Leukocyte Esterase Negative, Urine RBC None seen, Urine WBC 0-5, Ur Epithelial Cells 0-5, Urine Bacteria Trace, Urine Culture Comments No culture indicated 04/12/20 11:49: Sodium 143 H, Plasma Sodium 143 H, Potassium 3.8, Chloride 106, Carbon Dioxide 28.3, Anion Gap 12.5, BUN 34 H, Creatinine 1.63 H, Est GFR (Non- Af Amer) 32 L, BUN/Creatinine Ratio 20.9, Random Glucose 121 H, Calcium 9.0, Phosphorus 3.6, Albumin 3.0 L 04/13/20 06:30: WBC 9.2, RBC 2.98 L, Hgb 9.4 L, Hct 29.8 L, MCV 100.0, MCH 31.5 H, MCHC 31.5 L, RDW 13.8, Plt Count 131 L, MPV 11.5, Immature Gran % (Auto) 0.70 H, Immature Gran # (Auto) 0.06 H, Neutrophils % 75.0, Lymphocytes % 13.7 L, Monocytes % 7.9, Eosinophils % 2.4, Basophils % 0.3, Nucleated RBC % 0.0, Neut rophils # 6.9 H, Lymphocytes # 1.26 L, Monocytes # 0.7, Eosinophils # 0.2, Absolute Basophils 0.0 07/20/20 06:30: Sodium 141, Plasma Sodium 141, Potassium 4.6 D, Chloride 106, Carbon Dioxide 28.4, Anion Gap 11.2, BUN 26 H, Creatinine 1.34, Est GFR (Non-Af Amer) 40 L D, BUN/Creatinine Ratio 19.4, Random Glucose 109, Calcium 8.5, Calcium Adj for Albumin 9.2, Total Bilirubin 0.6, AST 19, ALT 9 L, Alkaline Phosphatase 54, Total Protein 5.3 L, Albumin 2.7 L 04/14/20 06:30: WBC 11.7 H D, RBC 2.52 L, Hgb 8.1 L, Hct 25.1 L, MCV 99.6, MCH 32.1 H, MCHC 32.3, RDW 13.6, Plt Count 114 L, MPV 11.9, Immature Gran % (Auto) 0.90 H, Immature Gran # (Auto) 0.11 H, Neutrophils % 78.9 H, Lymphocytes % 9.8 L, Monocytes % 9.3 H, Eosinophils % 0.8, Basophils % 0.3, Nucleated RBC % 0.0, Neutrophils # 9.3 H, Lymphocytes # 1.15 L, Monocytes # 1.1 H, Eosinophils # 0.1, Absolute Basophils 0.0 04/14/20 06:30: Sodium 138, Plasma Sodium 138, Potassium 4.1, Chloride 104, Carbon Dioxide 28.0, Anion Gap 10.1, BUN 23, Creatinine 1.33, Est GFR (Non-Af Amer) 40 L, BUN/Creatinine Ratio 17.3, Random Glucose 129 H, Calcium 7.9, Calcium Adj for Albumin 8.9, Total Bilirubin 0.5, AST 17, ALT 7 L, Alkaline Phosphatase 52, Total Protein 5.4 L, Albumin 2.4 L Discharge Location: [facility] Disposition: SNF Condition: Stable Level of Care: SNF Discharge Activity: Activity as tolerated Discharge Diet: General/regular food Referrals: Alexis Kunz MD [Staff Physician] - Two Weeks Saul Garcia DO [Primary Care Provider] - Two Weeks (Schedule Ze and Jose appointments on the same day if possible otherwise Jose appointments can be telemedicine) Problem Oriented Discharge Instructions to Patient/Family: Hip Fracture Additional Patient Instructions (free text): Xarelto daily for 6 weeks then stop and start Aspirin 325mg Daily Keep dressing clean, dry, and intact. Change every 2-3 days with dry gauze and t ape. Prescriptions (Any new or edited meds): HYDROcodone/ACETAMINOPHEN [[place] 5-325] 1 ea PO Q3H PRN #60 tab PRN Reason: Moderate Pain (Pain Scale 4-6) Transmission Status: Sent to [facility] Cefdinir [Omnicef] 300 mg PO Q12H #20 cap Transmission Status: Pending to [facility] Rivaroxaban [Xarelto] 20 mg PO DAILY #30 tab Transmission Status: Pending to [facility] Azithromycin [Zithromax] 250 mg PO DAILY #3 tab Transmission Status: Pending to [facility] Complete Home Medications List: Complete Home Medication List: Calc/D3/Mag/Zn/[place]ora/[place] [Calcium 600 mg Plus Vit D Tab] 1 ea PO DAILY 07/14/14 allopurinol 300 mg tablet 300 mg PO DAILY #90 tab 12/26/19 hydrochlorothiazide 25 mg tablet 25 mg PO DAILY #90 tab 12/26/19 lisinopril 40 mg tablet 40 mg PO DAILY #90 tab 12/26/19 metoprolol tartrate 50 mg tablet 50 mg PO BID #180 tab 12/26/19 ferrous sulfate 325 mg (65 mg iron) tablet 325 mg PO DAILY #30 tab 02/26/20 Acetaminophen [Tylenol] 500 mg PO Q4H PRN tablet 04/15/20 Azithromycin [Zithromax] 250 mg PO DAILY #3 tab 04/15/20 Cefdinir [Omnicef] 300 mg PO Q12H #20 cap 04/15/20 HYDROcodone/ACETAMINOPHEN [[place] 5-325] 1 ea PO Q3H PRN #60 tab 04/15/20 Rivaroxaban [Xarelto] 20 mg PO DAILY #30 tab 04/15/20 Sennosides/Docusate Sodium [Senokot-S] 2 tab PO HS tablet 04/15/20 Forms: Patient Portal Registration
[2020-04-15] MEDS: RIVAROXABAN 20 MG TABLET PO SCH (08:59)
[2020-04-15] MEDS: ALLOPURINOL 300 MG TABLET PO SCH (09:00)
[2020-04-15] MEDS: AZITHROMYCIN 250 MG TABLET PO SCH (09:00)
[2020-04-15] MEDS ORDERED: NORMAL SALINE 1,000 ML IV PRN ×2 (09:07→10:48)
[2020-04-15] MEDS: LISINOPRIL 40 MG TABLET PO SCH (09:12)
[2020-04-15] MEDS: METOPROLOL TARTRATE 50 MG TABLET PO SCH ×2 (09:12→20:37)
[2020-04-15 09:19] LABS: Hematocrit 24.6 % (37.0-47.0); Mean Cell Volume 101.7 fl (78-100); Mean Corpuscular Hemoglobin 32.2 pg (27-31); Mean Corpuscular Hgb Conc 31.7 g/dl (32-36); Mean Platelet Volume 11.6 fl (8-12.5); Neutrophil # 15.9 K/mm3 (1.3-6.0); Neutrophil % 88.3 % (42-75.0); Platelet Count 159 K/mm3 (150-450); Red Blood Count 2.42 M/mm3 (4.2-5.4); Red Cell Distribution Width 13.9 % (11.5-14.0)
[2020-04-15 09:24] LABS: Hemoglobin 7.8 gm/dL (12.5-16.0)
[2020-04-15 09:31] LABS: Albumin * 2.4 gm/dl (3.4-5.0); Anion Gap 11.5 mmol/L (6.8-13.8); BUN/Creatinine Ratio 17.2 (9.0-21.6); Bilirubin, Total 0.6 mg/dL (0.0-1.1); Ca. Corrected For Albumin 9.3 mg/dL (8.4-10.2); Calcium * 8.3 mg/dL (7.9-10.9); Carbon Dioxide 26.9 mmol/L (24-32.6); Potassium 4.4 mmol/L (3.4-4.6); Total Protein 5.7 gm/dL (6.2-8.2)
--- NOTE | 2020-04-15 14:35 | PN ---
Subjective - Date and Time Seen Date: 04/15/20 Time: 14:31 Subjective Narrative: Patient is poor historian. She had been drowsy from pain medications per nursing. Objective - Vitals Vitals: Last Vital Signs Temp 36.4 C 04/15/20 10:43 Pulse 87 04/15/20 10:43 Resp 16 04/15/20 10:43 BP 96/58 04/15/20 12:06 Pulse Ox 93 04/15/20 10:43 - Abnormal Lab Findings Abnormal Lab Findings: Abnormal Lab Results 04/15/20 04/15/20 Range/Units 09:08 09:08 WBC 18.0 H D (4.0-10.5) K/mm3 RBC 2.42 L (4.2-5.4) M/mm3 Hgb 7.8 L* (12.5-16.0) gm/dL Hct 24.6 L (37.0-47.0) % MCV 101.7 H (78-100) fl MCH 32.2 H (27-31) pg MCHC 31.7 L (32-36) g/dl Immature Gran % (Auto) 1.10 H (0.001-0.429) % Immature Gran # (Auto) 0.20 H (0.000-0.0310) K/mm3 Neutrophils % 88.3 H (42-75.0) % Lymphocytes % 6.0 L (20-51) % Neutrophils # 15.9 H (1.3-6.0) K/mm3 Lymphocytes # 1.08 L (1.5-3.5) k/mm3 BUN 29 H (3-23) mg/dL Creatinine 1.69 H (0.4-1.4) mg/dL Est GFR (Non-Af Amer) 31 L D (60-130) mL/min Random Glucose 198 H D (70-110) mg/dL ALT 8 L (19-67) U/L Total Protein 5.7 L (6.2-8.2) gm/dL Albumin 2.4 L (3.4-5.0) gm/dl - Exam Exam Narrative: Bandages C/D/I. Does not follow commands well. Is moving her left lower extremity. Calf supple. Labs reviewed. Cauti Physician Documentation - Urinary Catheter Management Urethral (Metz) Urethral Indwelling: Yes Date of Insertion: 04/12/20 Time of Insertion: 07:50 Assessment/Plan - Problems/Diagnosis (1) Closed left hip fracture Problem: Acute Narrative: Physical therapy for mobilization. Up in chair with meals. Pain control. Xeralto 20mg po qd for anticoagulation for six weeks postoperatively.
[2020-04-15] MEDS: SENNOSIDES/DOCUSATE SODIUM 1 TAB TABLET PO SCH (20:36)
[2020-04-15] MEDS: NORMAL SALINE 1,000 ML IV PRN (23:42)
[2020-04-16] MEDS ORDERED: NORMAL SALINE 1,000 ML IV PRN (05:36)
[2020-04-16] MEDS: ACETAMINOPHEN 500 MG TABLET PO PRN ×2 (06:20→19:56)
[2020-04-16 07:00] LABS: Mean Corpuscular Hemoglobin 32.3 pg (27-31); Mean Corpuscular Hgb Conc 32.3 g/dl (32-36); Mean Platelet Volume 11.7 fl (8-12.5); Neutrophil # 10.3 K/mm3 (1.3-6.0); Neutrophil % 79.6 % (42-75.0); Platelet Count 155 K/mm3 (150-450); Red Blood Count 1.95 M/mm3 (4.2-5.4); Red Cell Distribution Width 14.1 % (11.5-14.0); White Blood Count 12.9 K/mm3 (4.0-10.5)
[2020-04-16 07:07] LABS: Hematocrit 19.5 % (37.0-47.0); Hemoglobin 6.3 gm/dL (12.5-16.0)
[2020-04-16 07:37] LABS: Albumin * 1.9 gm/dl (3.4-5.0); Anion Gap 10.2 mmol/L (6.8-13.8); BUN/Creatinine Ratio 20.4 (9.0-21.6); Bilirubin, Total 0.6 mg/dL (0.0-1.1); Ca. Corrected For Albumin 8.9 mg/dL (8.4-10.2); Calcium * 7.5 mg/dL (7.9-10.9); Carbon Dioxide 27.5 mmol/L (24-32.6); Potassium 3.7 mmol/L (3.4-4.6)
[2020-04-16 08:01] LABS: Iron 23 mcg/dL (35-120); Transferrin Sat. (% Sat.) 26 % (15-55)
[2020-04-16 08:34] LABS: Folate 5.1 ng/mL (8.6-58.9)
--- NOTE | 2020-04-16 08:41 | PN ---
Subjective - Date and Time Seen Date: 04/16/20 Time: 08:37 Subjective Narrative: Patient is AAO x 2. Sitting on a recliner. Denies CP/SOB/lightheadeness. Objective - Vitals Vitals: Last Vital Signs Temp 36.7 C 04/16/20 07:13 Pulse 116 H 04/16/20 07:13 Resp 12 04/16/20 07:13 BP 96/56 04/16/20 07:13 Pulse Ox 98 04/16/20 07:13 - Abnormal Lab Findings Abnormal Lab Findings: Abnormal Lab Results 04/15/20 04/15/20 04/16/20 Range/Units 09:08 09:08 06:00 WBC 18.0 H D (4.0-10.5) K/mm3 RBC 2.42 L (4.2-5.4) M/mm3 Hgb 7.8 L* (12.5-16.0) gm/dL Hct 24.6 L (37.0-47.0) % MCV 101.7 H (78-100) fl MCH 32.2 H (27-31) pg MCHC 31.7 L (32-36) g/dl RDW (11.5-14.0) % Immature Gran % (Auto) 1.10 H (0.001-0.429) % Immature Gran # (Auto) 0.20 H (0.000-0.0310) K/mm3 Neutrophils % 88.3 H (42-75.0) % Lymphocytes % 6.0 L (20-51) % Eosinophils % (0.0-3.0) % Neutrophils # 15.9 H (1.3-6.0) K/mm3 Lymphocytes # 1.08 L (1.5-3.5) k/mm3 BUN 29 H (3-23) mg/dL Creatinine 1.69 H (0.4-1.4) mg/dL Est GFR (Non-Af Amer) 31 L D (60-130) mL/min Random Glucose 198 H D (70-110) mg/dL Calcium (7.9-10.9) mg/dL Iron 23 L (35-120) mcg/dL TIBC 87 L (260-445) mcg/dL Ferritin (8-252) ng/mL ALT 8 L (19-67) U/L Total Protein 5.7 L (6.2-8.2) gm/dL Albumin 2.4 L (3.4-5.0) gm/dl Vitamin B12 (193-986) pg/mL Folate (8.6-58.9) ng/mL 04/16/20 04/16/20 04/16/20 Range/Units 06:00 06:43 06:43 WBC 12.9 H D (4.0-10.5) K/mm3 RBC 1.95 L (4.2-5.4) M/mm3 Hgb 6.3 L* (12.5-16.0) gm/dL Hct 19.5 L* D (37.0-47.0) % MCV (78-100) fl MCH 32.3 H (27-31) pg MCHC (32-36) g/dl RDW 14.1 H (11.5-14.0) % Immature Gran % (Auto) 1.00 H (0.001-0.429) % Immature Gran # (Auto) 0.13 H (0.000-0.0310) K/mm3 Neutrophils % 79.6 H (42-75.0) % Lymphocytes % 9.5 L (20-51) % Eosinophils % 3.1 H (0.0-3.0) % Neutrophils # 10.3 H (1.3-6.0) K/mm3 Lymphocytes # 1.22 L (1.5-3.5) k/mm3 BUN 31 H (3-23) mg/dL Creatinine 1.52 H (0.4-1.4) mg/dL Est GFR (Non-Af Amer) 35 L (60-130) mL/min Random Glucose (70-110) mg/dL Calcium 7.5 L (7.9-10.9) mg/dL Iron (35-120) mcg/dL TIBC (260-445) mcg/dL Ferritin 966 H (8-252) ng/mL ALT 9 L (19-67) U/L Total Protein 5.0 L (6.2-8.2) gm/dL Albumin 1.9 L (3.4-5.0) gm/dl Vitamin B12 131 L (193-986) pg/mL Folate 5.1 L (8.6-58.9) ng/mL Cauti Physician Documentation - Urinary Catheter Management Urethral (Metz) Urethral Indwelling: Yes Date of Insertion: 04/12/20 Time of Insertion: 07:50 Assessment/Plan Plan Narrative: Katheryn is an 84 year old WF patient of Dr. 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 No gross bleeding on operative. No hemtochezia/hematemesis. ADDENDUM: Dr. Garcia signed out this patient to Dr. Dos Santos . I talled the nurses to follow Dr. Dos Santos's orders and cancell mine. He is going to do the patient's prrogress notes or discharge summary. I will cancel my progress notes.
[2020-04-16] MEDS: LISINOPRIL 40 MG TABLET PO SCH (08:59)
[2020-04-16] MEDS: METOPROLOL TARTRATE 50 MG TABLET PO SCH ×2 (08:59→20:24)
[2020-04-16] MEDS: AZITHROMYCIN 250 MG TABLET PO SCH (09:00)
[2020-04-16] MEDS: ALLOPURINOL 300 MG TABLET PO SCH (09:00)
[2020-04-16] MEDS: RIVAROXABAN 20 MG TABLET PO SCH (09:04)
[2020-04-16] MEDS: NORMAL SALINE 1,000 ML IV PRN (09:58)
[2020-04-16] MEDS ORDERED: MORPHINE SULFATE 2 MG/ML DISP.SYRIN IV PRN (10:00)
--- NOTE | 2020-04-16 18:09 | PN ---
Subjective - Date and Time Seen Date: 04/16/20 Time: 18:02 Subjective Narrative: Katheryn was anticipating going to the [place] today. However her heart rate is up to 116 and her blood pressure down to 92 systolic. In checking her lab work her hemoglobin is down to 6.3 g and hematocrit is just at 19.1%. I am seeing her today for Dr. Garcia since he is gone today and he will resume her care tomorrow. She is otherwise been stable and recovering from her hip surgery without difficulty. I think correcting her hemoglobin will also correct her blood pressure and her heart rate. No other changes are made in her therapy today. She is being typed and crossed for 3 units of packed red cells. I will have them give to initially and then check a blood count. Objective - Review of Systems Generalized/Overall Review: Reports: Weakness EENTM: Reports: No Symptoms Reported Respiratory: Reports: No Symptoms Reported Cardiac: Reports: Other - Rapid heart rate Abdominal: Reports: No Symptoms Reported Genitourinary Symptoms: Reports: No Symptoms Reported Musculoskeletal Complaints: Reports: Joint Pain - Left hip pain due to recent ORIF Neurological: Reports: No Symptoms Reported Skin: Reports: No Symptoms Reported Endocrine: Reports: No Symptoms Reported - Vitals Vitals: Last Vital Signs Temp 37.1 C 04/16/20 17:15 Pulse 97 04/16/20 17:15 Resp 18 04/16/20 17:15 BP 110/46 04/16/20 17:15 Pulse Ox 97 04/16/20 17:15 - Abnormal Lab Findings Abnormal Lab Findings: Abnormal Lab Results 04/16/20 04/16/20 04/16/20 Range/Units 06:00 06:00 06:43 WBC 12.9 H D (4.0-10.5) K/mm3 RBC 1.95 L (4.2-5.4) M/mm3 Hgb 6.3 L* (12.5-16.0) gm/dL Hct 19.5 L* D (37.0-47.0) % MCH 32.3 H (27-31) pg RDW 14.1 H (11.5-14.0) % Immature Gran % (Auto) 1.00 H (0.001-0.429) % Immature Gran # (Auto) 0.13 H (0.000-0.0310) K/mm3 Neutrophils % 79.6 H (42-75.0) % Lymphocytes % 9.5 L (20-51) % Eosinophils % 3.1 H (0.0-3.0) % Neutrophils # 10.3 H (1.3-6.0) K/mm3 Lymphocytes # 1.22 L (1.5-3.5) k/mm3 BUN (3-23) mg/dL Creatinine (0.4-1.4) mg/dL Est GFR (Non-Af Amer) (60-130) mL/min Calcium (7.9-10.9) mg/dL Iron 23 L (35-120) mcg/dL TIBC 87 L (260-445) mcg/dL Ferritin 966 H (8-252) ng/mL ALT (19-67) U/L Total Protein (6.2-8.2) gm/dL Albumin (3.4-5.0) gm/dl Vitamin B12 131 L (193-986) pg/mL Folate 5.1 L (8.6-58.9) ng/mL Crossmatch 04/16/20 04/16/20 Range/Units 06:43 08:07 WBC (4.0-10.5) K/mm3 RBC (4.2-5.4) M/mm3 Hgb (12.5-16.0) gm/dL Hct (37.0-47.0) % MCH (27-31) pg RDW (11.5-14.0) % Immature Gran % (Auto) (0.001-0.429) % Immature Gran # (Auto) (0.000-0.0310) K/mm3 Neutrophils % (42-75.0) % Lymphocytes % (20-51) % Eosinophils % (0.0-3.0) % Neutrophils # (1.3-6.0) K/mm3 Lymphocytes # (1.5-3.5) k/mm3 BUN 31 H (3-23) mg/dL Creatinine 1.52 H (0.4-1.4) mg/dL Est GFR (Non-Af Amer) 35 L (60-130) mL/min Calcium 7.5 L (7.9-10.9) mg/dL Iron (35-120) mcg/dL TIBC (260-445) mcg/dL Ferritin (8-252) ng/mL ALT 9 L (19-67) U/L Total Protein 5.0 L (6.2-8.2) gm/dL Albumin 1.9 L (3.4-5.0) gm/dl Vitamin B12 (193-986) pg/mL Folate (8.6-58.9) ng/mL Crossmatch See Detail - EKG/Xray Findings XRAY: hip Interpretation: Reviewed by me - Exam Constitutional: Present: Alert, Oriented x3, Cooperative, Well developed, Well nourished, Mild distress ENT Exam: Present: normal ENT inspection, hearing grossly normal, pharynx normal, TMs normal Neck: Present: non-tender, supple, normal inspection, limited range of motion Breasts: Present: Exam deferred Respiratory: Present: chest non-tender, lungs clear, normal breath sounds, no respiratory distress Cardiovascular/Chest: Present: normal peripheral pulses, no chest tenderness, tachycardia Abdomen: Present: Normal bowel sounds, soft, nontender, nondistended, no rebound tenderness, no hepatospenomegaly, no masses /Rectal: Present: Exam deferred Extremity: Present: other - Status post left hip ORIF Skin Exam: Present: normal color, warm/dry, no cyanosis Lymphatic: Present: no adenopathy Neurologic: Present: template inspector II-XII nml as tested Appearance: Present: appropriate appearance, appropriate insight, neat Eye contact: Present: cooperative, good eye contact, normal speech Thoughts: Present: normal thought pattern, no apparent hallucination Cauti Physician Documentation - Urinary Catheter Management Urethral (Metz) Urethral Indwelling: Yes Date of Insertion: 04/12/20 Time of Insertion: 07:50 Assessment/Plan Plan Narrative: 1. Type and cross for 3 units of packed red cells and infuse first 2 units when ready 2. Check hemogram 2 hours after the second unit is infused 3. I will decide on the third unit after I see the hemogram 4. CBC CMP tomorrow morning. - Problems/Diagnosis (1) Displaced fracture of left femoral neck Problem: Acute (2) Hilar mass Problem: Suspected (3) Hypertension Problem: Chronic Qualifiers: Hypertension type: essential hypertension Qualified Code(s): I10 - Essential (primary) hypertension (4) Hypercholesteremia Problem: Chronic (5) Atrial fibrillation Problem: Inactive Qualifiers: Atrial fibrillation type: permanent Qualified Code(s): I48.21 - Permanent atrial fibrillation (6) Abdominal aortic aneurysm Problem: Chronic Qualifiers: Presence of rupture: without rupture Qualified Code(s): I71.4 - Abdominal aortic aneurysm, without rupture (7) Acute post-hemorrhagic anemia Problem: Acute
[2020-04-16 19:22] LABS: Hemoglobin 9.5 gm/dL (12.5-16.0); Mean Cell Volume 96.7 fl (78-100); Mean Corpuscular Hemoglobin 31.7 pg (27-31); Mean Corpuscular Hgb Conc 32.8 g/dl (32-36); Mean Platelet Volume 11.2 fl (8-12.5); Platelet Count 151 K/mm3 (150-450); Red Cell Distribution Width 14.7 % (11.5-14.0); White Blood Count 13.1 K/mm3 (4.0-10.5)
[2020-04-16] MEDS: SENNOSIDES/DOCUSATE SODIUM 1 TAB TABLET PO SCH (20:24)
[2020-04-17 06:31] LABS: Albumin * 1.8 gm/dl (3.4-5.0); Anion Gap 10.1 mmol/L (6.8-13.8); Bilirubin, Total 0.8 mg/dL (0.0-1.1); Ca. Corrected For Albumin 8.7 mg/dL (8.4-10.2); Calcium * 7.3 mg/dL (7.9-10.9); Carbon Dioxide 27.3 mmol/L (24-32.6); Potassium 3.4 mmol/L (3.4-4.6); Total Protein 4.9 gm/dL (6.2-8.2)
[2020-04-17 06:46] LABS: Hematocrit 24.4 % (37.0-47.0); Hemoglobin 8.1 gm/dL (12.5-16.0); Mean Cell Volume 96.4 fl (78-100); Mean Corpuscular Hgb Conc 33.2 g/dl (32-36); Mean Platelet Volume 11.2 fl (8-12.5); Neutrophil # 8.2 K/mm3 (1.3-6.0); Neutrophil % 78.9 % (42-75.0); Platelet Count 150 K/mm3 (150-450); Red Blood Count 2.53 M/mm3 (4.2-5.4); Red Cell Distribution Width 14.7 % (11.5-14.0); White Blood Count 10.4 K/mm3 (4.0-10.5)
[2020-04-17] MEDS: ALLOPURINOL 300 MG TABLET PO SCH (08:02)
[2020-04-17] MEDS: METOPROLOL TARTRATE 50 MG TABLET PO SCH (08:02)
[2020-04-17] MEDS: AZITHROMYCIN 250 MG TABLET PO SCH (08:02)
[2020-04-17] MEDS: RIVAROXABAN 20 MG TABLET PO SCH (08:02)
[2020-04-17] MEDS: LISINOPRIL 40 MG TABLET PO SCH (08:02)
--- NOTE | 2020-04-17 10:42 | DS ---
(1) Closed left hip fracture Problem: Acute (2) Right middle lobe pneumonia Problem: Acute Qualifiers: Pneumonia type: due to unspecified organism Qualified Code(s): J18.9 - Pneumonia, unspecified organism (3) Hilar mass Problem: Suspected (4) Altered mental status Problem: Acute Date of Discharge:: 04/17/20 Hospital Course: Katheryn is an 84 yo female admitted with left hip fracture after a fall. She was medically cleared for surgery and had closed reduction, cephalo- medullary fixation of left intertrochanteric femur fracture repaired on 04/13/20. She was quite somnolent after getting percocet. Her pain medications were changed to hydrocodone. On admission she also had a chest xray that showed possible right hilar infiltrate vs mass. She had an elevated WBC and was started on treatment for possible pneumonia with rocephin and azithromycin. I will treat her as a pneumonia and then repeat chest xray in a couple weeks. If this does not improve like a pneumonia then may need further evaluation as a mass. She was set up for discharge but had low blood pressures and low urine output so she was kept and given more fluids. The following day her hemoglobin had dropped below 7 and she was transfused blood. Her hemoglobin is back up now and she is feeling well and ready to continue therapy at [facility]. She will be discharged to SNF today with PT and OT. She will keep her surgical dressings clean and dry and they may be changed every 2-3 days with tape and gauze. She will remain on xarel to for 6 weeks and then back to her aspirin 325mg daily. Procedures Performed: see notes below List Procedures: Closed reduction, cephalo-medullary fixation left intertrochanteric femur fracture 04/13/20 Results and Findings: Lab Pending Results 04/12/20 07:25: WBC 10.3, RBC 3.79 L, Hgb 12.0 L, Hct 38.0, MCV 100.3 H, MCH 31.7 H, MCHC 31.6 L, RDW 13.5, Plt Count 157, MPV 11.4, Immature Gran % (Auto) 0.70 H, Immature Gran # (Auto) 0.07 H, Neutrophils % 76.4 H, Lymphocytes % 12.2 L, Monocytes % 6.8, Eosinophils % 3.4 H, Basophils % 0.5, Nucleated RBC % 0.0, Neutrophils # 7.8 H, Lymphocytes # 1.25 L, Monocytes # 0.7, Eosinophils # 0.4, Absolute Basophils 0.1 04/12/20 07:25: PT 10.8 H, INR (Anticoag Therapy) 1.09 H, PTT (Aaron) 24.6 04/12/20 07:25: Sodium 144 H, Plasma Sodium 144 H, Potassium 4.0, Chloride 105, Carbon Dioxide 30.8, Anion Gap 12.2, BUN 36 H, Creatinine 1.62 H D, Est GFR (Non-Af Amer) 32 L D, BUN/Creatinine Ratio 22.2 H, Random Glucose 117 H, Calcium 9.5, Calcium Adj for Albumin 9.7, Total Bilirubin 0.4, AST 15, ALT 12 L, Alkaline Phosphatase 75, Total Protein 6.9, Albumin 3.4 04/12/20 07:25: Blood Type O Negative, Antibody Screen Negative 04/12/20 07:25: TSH 3.584 04/12/20 07:45: SARS-CoV-2 (PCR) Not detected 04/12/20 07:52: Urine Color Yellow, Urine Appearance Clear, Urine pH 5.5, Ur Specific [place] >=1.030, Urine Protein Negative, Urine Glucose (UA) Negative, Urine Ketones Negative, Urine Blood Negative, Urine Nitrate Negative, Urine Bilirubin Negative, Urine Urobilinogen Normal, Ur Leukocyte Esterase Negative, Urine RBC None seen, Urine WBC 0-5, Ur Epithelial Cells 0-5, Urine Bacteria Trace, Urine Culture Comments No culture indicated 04/12/20 11:49: Sodium 143 H, Plasma Sodium 143 H, Potassium 3.8, Chloride 106, Carbon Dioxide 28.3, Anion Gap 12.5, BUN 34 H, Creatinine 1.63 H, Est GFR (Non- Af Amer) 32 L, BUN/Creatinine Ratio 20.9, Random Glucose 121 H, Calcium 9.0, Phosphorus 3.6, Albumin 3.0 L 04/13/20 06:30: WBC 9.2, RBC 2.98 L, Hgb 9.4 L, Hct 29.8 L, MCV 100.0, MCH 31.5 H, MCHC 31.5 L, RDW 13.8, Plt Count 131 L, MPV 11.5, Immature Gran % (Auto) 0.70 H, Immature Gran # (Auto) 0.06 H, Neutrophils % 75.0, Lymphocytes % 13.7 L, Monocytes % 7.9, Eosinophils % 2.4, Basophils % 0.3, Nucleated RBC % 0.0, Neutrophils # 6.9 H, Lymphocytes # 1.26 L, Monocytes # 0.7, Eosinophils # 0.2, Absolute Basophils 0.0 04/13/20 06:30: Sodium 141, Plasma Sodium 141, Potassium 4.6 D, Chloride 106, Carbon Dioxide 28.4, Anion Gap 11.2, BUN 26 H, Creatinine 1.34, Est GFR (Non-Af Amer) 40 L D, BUN/Creatinine Ratio 19.4, Random Glucose 109, Calcium 8.5, Calcium Adj for Albumin 9.2, Total Bilirubin 0.6, AST 19, ALT 9 L, Alkaline Phosphatase 54, Total Protein 5.3 L, Albumin 2.7 L 04/14/20 06:30: WBC 11.7 H D, RBC 2.52 L, Hgb 8.1 L, Hct 25.1 L, MCV 99.6, MCH 32.1 H, MCHC 32.3, RDW 13.6, Plt Count 114 L, MPV 11.9, Immature Gran % (Auto) 0.90 H, Immature Gran # (Auto) 0.11 H, Neutrophils % 78.9 H, Lymphocytes % 9.8 L, Monocytes % 9.3 H, Eosinophils % 0.8, Basophils % 0.3, Nucleated RBC % 0.0, Neutrophils # 9.3 H, Lymphocytes # 1.15 L, Monocytes # 1.1 H, Eosinophils # 0.1, Absolute Basophils 0.0 04/14/20 06:30: Sodium 138, Plasma Sodium 138, Potassium 4.1, Chloride 104, Carbon Dioxide 28.0, Anion Gap 10.1, BUN 23, Creatinine 1.33, Est GFR (Non-Af Amer) 40 L, BUN/Creatinine Ratio 17.3, Random Glucose 129 H, Calcium 7.9, Calcium Adj for Albumin 8.9, Total Bilirubin 0.5, AST 17, ALT 7 L, Alkaline Phosphatase 52, Total Protein 5.4 L, Albumin 2.4 L 04/15/20 09:08: WBC 18.0 H D, RBC 2.42 L, Hgb 7.8 L*, Hct 24.6 L, MCV 101.7 H, MCH 32.2 H, MCHC 31.7 L, RDW 13.9, Plt Count 159, MPV 11.6, Immature Gran % (Auto) 1.10 H, Immature Gran # (Auto) 0.20 H, Neutrophils % 88.3 H, Lymphocytes % 6.0 L, Monocytes % 3.9, Eosinophils % 0.4, Basophils % 0.3, Nucleated RBC % 0.0, Neutrophils # 15.9 H, Lymphocytes # 1.08 L, Monocytes # 0.7, Eosinophils # 0.1, Absolute Basophils 0.1 04/15/20 09:08: Sodium 137, Plasma Sodium 139, Potassium 4.4, Chloride 103, Carbon Dioxide 26.9, Anion Gap 11.5, BUN 29 H, Creatinine 1.69 H, Est GFR (Non- Af Amer) 31 L D, BUN/Creatinine Ratio 17.2, Random Glucose 198 H D, Calcium 8.3, Calcium Adj for Albumin 9.3, Total Bilirubin 0.6, AST 20, ALT 8 L, Alkaline Phosphatase 54, Total Protein 5.7 L, Albumin 2.4 L 04/16/20 06:00: Iron 23 L, TIBC 87 L, Transferrin % Sat 26 04/16/20 06:00: Ferritin 966 H, Vitamin B12 131 L, Folate 5.1 L 04/16/20 06:43: WBC 12.9 H D, RBC 1.95 L, Hgb 6.3 L*, Hct 19.5 L* D, MCV 100.0, MCH 32.3 H, MCHC 32.3, RDW 14.1 H, Plt Count 155, MPV 11.7, Immature Gran % (Auto) 1.00 H, Immature Gran # (Auto) 0.13 H, Neutrophils % 79.6 H, Lymphocytes % 9.5 L, Monocytes % 6.6, Eosinophils % 3.1 H, Basophils % 0.2, Nucleated RBC % 0.0, Neutrophils # 10.3 H, Lymphocytes # 1.22 L, Monocytes # 0.9, Eosinophils # 0.4, Absolute Basophils 0.0 04/16/20 06:43: Sodium 138, Plasma Sodium 138, Potassium 3.7, Chloride 104, Carbon Dioxide 27.5, Anion Gap 10.2, BUN 31 H, Creatinine 1.52 H, Est GFR (Non- Af Amer) 35 L, BUN/Creatinine Ratio 20.4, Random Glucose 91 D, Calcium 7.5 L, Calcium Adj for Albumin 8.9, Total Bilirubin 0.6, AST 38, ALT 9 L, Alkaline Phosphatase 53, Total Protein 5.0 L, Albumin 1.9 L 04/16/20 08:07: Blood Type O Negative, Antibody Screen Negative, Crossmatch See Detail 04/16/20 11:45: Stool Occult Blood Negative 04/16/20 19:13: WBC 13.1 H, RBC 3.00 L, Hgb 9.5 L, Hct 29.0 L, MCV 96.7, MCH 31.7 H, MCHC 32.8, RDW 14.7 H, Plt Count 151, MPV 11.2 04/17/20 06:17: WBC 10.4 D, RBC 2.53 L, Hgb 8.1 L, Hct 24.4 L, MCV 96.4, MCH 32.0 H, MCHC 33.2, RDW 14.7 H, Plt Count 150, MPV 11.2, Immature Gran % (Auto) 0.90 H, Immature Gran # (Auto) 0.09 H, Neutrophils % 78.9 H, Lymphocytes % 7.9 L, Monocytes % 7.2, Eosinophils % 4.8 H, Basophils % 0.3, Nucleated RBC % 0.0, Neutrophils # 8.2 H, Lymphocytes # 0.82 L, Monocytes # 0.8, Eosinophils # 0.5, Absolute Basophils 0.0 04/17/20 06:17: Sodium 138, Plasma Sodium 138, Potassium 3.4, Chloride 104, Carbon Dioxide 27.3, Anion Gap 10.1, BUN 23, Creatinine 1.21, Est GFR (Non-Af Amer) 45 L D, BUN/Creatinine Ratio 19.0, Random Glucose 93, Calcium 7.3 L, Calcium Adj for Albumin 8.7, Total Bilirubin 0.8, AST 43, ALT 12 L, Alkaline Phosphatase 58, Total Protein 4.9 L, Albumin 1.8 L Discharge Location: [facility] Disposition: SNF Condition: Stable Discharge Activity: Activity as tolerated Discharge Diet: General/regular food Referrals: Saul Garcia DO [Primary Care Provider] - Two Weeks (Schedule Ze and Joes appointments on the same day if possible otherwise Jose appointments can be telemedicine) Alexis Kunz MD [Staff Physician] - Two Weeks Problem Oriented Discharge Instructions to Patient/Family: Hip Fracture Additional Patient Instructions (free text): Xarelto daily for 6 weeks then stop and start Aspirin 325mg Daily Keep dressing clean, dry, and intact. Change every 2-3 days with dry gauze and tape. Follow up with April 28 at 1:45p.m. Telemedicine. Follow up with Orthopedic with Dr. Kunz April 30 at 1:30p.m. Follow medications as previously prescribed. Prescriptions (Any new or edited meds): HYDROcodone/ACETAMINOPHEN [Serafina 5-325] 1 ea PO Q3H PRN #60 tab PRN Reason: Moderate Pain (Pain Scale 4-6) Transmission Status: Received by [facility] Cefdinir [Omnicef] 300 mg PO Q12H #20 cap Transmission Status: Received by [facility] Rivaroxaban [Xarelto] 20 mg PO DAILY #30 tab Transmission Status: Received by [facility] Azithromycin [Zithromax] 250 mg PO DAILY #3 tab Transmission Status: Received by [facility] Complete Home Medications List: Complete Home Medication List: Calc/D3/Mag/Zn/Isadora/Theron/Coker [Calcium 600 mg Plus Vit D Tab] 1 ea PO DAILY 07/14/14 allopurinol 300 mg tablet 300 mg PO DAILY #90 tab 12/26/19 hydrochlorothiazide 25 mg tablet 25 mg PO DAILY #90 tab 12/26/19 lisinopril 40 mg tablet 40 mg PO DAILY #90 tab 12/26/19 metoprolol tartrate 50 mg tablet 50 mg PO BID #180 tab 12/26/19 ferrous sulfate 325 mg (65 mg iron) tablet 325 mg PO DAILY #30 tab 02/26/20 Acetaminophen [Tylenol] 500 mg PO Q4H PRN tab 04/15/20 Azithromycin [Zithromax] 250 mg PO DAILY #3 tab 04/15/20 Cefdinir [Omnicef] 300 mg PO Q12H #20 cap 04/15/20 HYDROcodone/ACETAMINOPHEN [Serafina 5-325] 1 ea PO Q3H PRN #60 tab 04/15/20 Rivaroxaban [Xarelto] 20 mg PO DAILY #30 tab 04/15/20 Sennosides/Docusate Sodium [Senokot-S] 2 tab PO HS tab 04/15/20 Amb Orders for Discharge: CBC Time Frame: 04/20/20, Facility: [facility], Location: Laboratory Forms: Patient Portal Registration
[2020-04-17 13:19] VITALS: BP 117/50
== END 2020-04-17 13:14 | DRG 480 ==
LOC: ER 06:27 → MS 08:04
PROVIDERS: ADMIT Family Medicine; ATTEND Family Medicine
DX: D64.9 Anemia, unspecified; I95.9 Hypotension, unspecified; J69.0 Pneumonitis due to inhalation of food and vomit; I10 Essential (primary) hypertension; D62 Acute posthemorrhagic anemia; Z11.59 Encounter for screening for other viral diseases; E78.00 Pure hypercholesterolemia, unspecified; I71.4 Abdominal aortic aneurysm, without rupture; R40.2413 Glasgow coma scale score 13-15, at hospital admission; I49.9 Cardiac arrhythmia, unspecified; R91.8 Other nonspecific abnormal finding of lung field; W18.11XA Fall from or off toilet without subsequent striking against object, initial encounter; I48.21 Permanent atrial fibrillation; E86.0 Dehydration; S72.142A Displaced intertrochanteric fracture of left femur, initial encounter for closed fracture; N17.9 Acute kidney failure, unspecified
CPT/HCPCS: 36415; 71010; 71045; 73502; 80053; 80069; 81001; 82272; 82607; 82728; 82746; 83540; 83550; 84443; 84466; 85025; 85027; 85610; 85730; 86850; 93005; 97110; 97161; 97165; 97530; 99285; C9803; J0131; P9016

== ENCOUNTER 2020-06-21 06:45 | Inpatient (IN) ==
--- NOTE | 2020-06-21 07:05 | ERNOTE ---
<Calvin Harrington - Last Filed: 06/21/20 07:47> Neuro HPI ER Record Date of Service: 06/21/20 Presenting Symptoms: other - Positive to painful stimuli only possible seizure Time Seen by Provider: 06/21/20 06:50 Source: EMS Exam Limitations: clinical condition Immunizations: IMMUNIZATION HX Immunizations Up to Date Yes History of Influenza Vaccine Yes Hx Pneumococcal Vaccination Yes Allergies/Adverse Reactions: Allergies Allergy/AdvReac Type Severity Reaction Status Date / Time ciprofloxacin [From Cipro] Allergy Verified 04/30/20 13:56 ciprofloxacin HCl Allergy Verified 04/30/20 13:56 [From Cipro] Sulfa (Sulfonamide Allergy Verified 04/30/20 13:56 Antibiotics) Home Medications: HOME MEDICATIONS Calc/D3/Mag/Zn/Isadora/Theron/[place] [Calcium 600 mg Plus Vit D Tab] 1 ea PO DAILY 1 [Last Taken 07/14/14] acetaminophen 500 mg tablet 500 mg PO Q4H PRN #30 tab 05/13/20 [Last Taken Unknown] allopurinol 300 mg tablet 300 mg PO DAILY #30 tab 05/13/20 [Last Taken Unknown] aspirin 325 mg tablet 325 mg PO DAILY #30 tab 05/13/20 [Last Taken Unknown] calcium carbonate 600 mg (1,500 mg)-vitamin D3 500 unit capsule 1 cap PO DAILY #30 cap 05/13/20 [Last Taken Unknown] ferrous sulfate 325 mg (65 mg iron) tablet 325 mg PO DAILY #30 tab 05/13/20 [Last Taken Unknown] rivaroxaban 20 mg tablet 20 mg PO DAILY #30 tab 05/13/20 [Last Taken Unknown] sennosides 8.6 mg-docusate sodium 50 mg tablet 2 tab PO HS #60 tab 05/13/20 [Last Taken Unknown] - History of Present Illness Narrative: 84-year-old female brought from [facility] with a seizure ;we have little to no information from the assisted ,as to what they saw ;why she is there, or medications Date (Duration): 06/21/20 Time (Timing): 07:00 Last Date Known Well: 06/21/20 Last Time Known Well: 07:01 Onset: cannot confirm onset Severity: moderate - Character of Deficits New weakness: Present: general (diffuse) Review of Systems - Narrative Narrative: Unobtainable at this time Medical History (Last Reviewed 06/21/20 @ 07:03 by Calvin Harrington MD) Hypertension (Chronic) Hypercholesteremia (Chronic) Atrial fibrillation (Inactive) Abdominal aortic aneurysm (Chronic) Vertigo Vertigo, benign paroxysmal Benign paroxysmal positional vertigo Chest pain in adult Contusion of foot, right Facial contusion Hand contusion Head injury Patella fracture Radius fracture Surgical History: Surgical History (Last Reviewed 06/21/20 @ 07:03 by Calvin Harrington MD) History of appendectomy Onset Date: ~1947 History of basal cell carcinoma excision Onset Date: ~2008 History of cataract extraction Onset Date: ~2006 History of colonoscopy Onset Date: ~2003 History of colonoscopy Onset Date: ~2008 History of hip surgery Onset Date: ~04/13/20 Dr. Kunz: Closed reduction, cephalo-medullary fixation left intertrochanteric femur fracture History of lumpectomy of right breast Onset Date: ~1977 History of total vaginal hysterectomy (TVH) Onset Date: ~1971 Family History: Family History (Last Reviewed 04/30/20 @ 13:55 by Margaret Bradley LPN) Father , age 54 DVT (deep venous thrombosis) Mother , age 96 Hypertension CAD (coronary artery disease) Social History: (Last Updated 04/30/20 @ 16:37 by Alexis Kunz MD) Social History: adopted: No assisted: No Marital status: lives independently: Yes household members: spouse current occupational 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 Highest education level completed: high school graduate Service: No Tobacco: Smoking Status: Never smoker Alcohol: alcohol intake: never Substance Use: substance use type: does not use Dietary Habits: well-balanced diet: daily or most days caffeine: No Amber/Gnosticism: special amber needs: No Physical Exam - Physical Exam General Appearance: Present: wd/wn, lethargic, obese Head Exam: Present: normal inspection Eye Exam: Normal inspection: bilateral, PERRL: bilateral, EOMI: bilateral Ears, Nose, Throat: Present: normal ENT inspection Neck: Present: normal inspection Respiratory: Present: no respiratory distress, normal breath sounds Cardiovascular/Chest: Present: regular rate, rhythm Gastrointestinal/Abdominal: Present: normal bowel sounds, nontender Extremity Exam: Present: normal inspection Neurological Exam: Present: other - Response to deep painful stimuli on Skin Exam: Present: normal color Lymphatic Exam: Present: no adenopathy [place] Coma Scale - Assess Eye Opening: To Pain Motor: Localizes to Pain Verbal: None - Total Coma Scale Total: 8 Progress - Results and Orders Patient's Lab Results:: I have reviewed the patient's lab results. Results and Orders: Laboratory Tests 06/21/20 06/21/20 06/21/20 07:17 07:17 07:17 WBC 8.3 RBC 3.72 L Hgb 11.4 L Hct 36.6 L MCV 98.4 MCH 30.6 MCHC 31.1 L RDW 13.9 Plt Count 190 Neutrophils % 63.2 Lymphocytes % 24.4 Sodium 141 Plasma Sodium 142 Potassium 2.9 L D Chloride 104 Carbon Dioxide 23.2 L Anion Gap 16.7 H BUN 19 Creatinine 1.25 Est GFR (Non-Af Amer) 43 L BUN/Creatinine Ratio 15.2 Random Glucose 160 H Lactic Acid, Venous 4.1 H* Calcium 9.4 Calcium Adj for Albumin 9.7 Magnesium 1.7 Total Bilirubin 0.6 AST 19 Alkaline Phosphatase 98 Troponin I 0.029 B-Natriuretic Peptide 2220 H Total Protein 6.7 Albumin 3.2 L - Vital Signs Vital Signs: Vital Signs 06/21/20 06:50 Temperature 35.9 C L Pulse Rate 91 Respiratory Rate 18 Blood Pressure 155/78 H O2 Sat by Pulse Oximetry 94 - EKG EKG #1 EKG: NSR EKG read: Interp. by me EKG Comments: EKG atrial fibrillation heart rate 89 left axis deviation possible myocardial infarction unchanged from - Progress/Reassessment Chief Complaint: Seizure Activity - Transfer of Care Physician Sign Out: Calvin Harrington Receiving Physician: David De La Torre Pending Results: CT/MRI results, Labs, X-ray results Plan - Plan Plan: Pending labs and CAT scans possible admission Departure Clinical Impression: Change in mental status, UTI (urinary tract infection), CHF (congestive heart failure), Elevated lactic acid level - Departure Disposition: Still a patient Condition: Fair <David De La Torre - Last Filed: 06/21/20 09:40> Neuro HPI ER Record Immunizations: IMMUNIZATION HX Immunizations Up to Date Yes History of Influenza Vaccine Yes Hx Pneumococcal Vaccination Yes Medical History (Last Reviewed 06/21/20 @ 07:03 by Calvin Harrington MD) Hypertension (Chronic) Hypercholesteremia (Chronic) Atrial fibrillation (Inactive) Abdominal aortic aneurysm (Chronic) Vertigo Vertigo, benign paroxysmal Benign paroxysmal positional vertigo Chest pain in adult Contusion of foot, right Facial contusion Hand contusion Head injury Patella fracture Radius fracture Surgical History: Surgical History (Last Reviewed 06/21/20 @ 07:03 by Calvin Harrington MD) History of appendectomy Onset Date: ~1947 History of basal cell carcinoma excision Onset Date: ~2008 History of cataract extraction Onset Date: ~2006 History of colonoscopy Onset Date: ~2003 History of colonoscopy Onset Date: ~2008 History of hip surgery Onset Date: ~04/13/20 Dr. Kunz: Closed reduction, cephalo-medullary fixation left intertrochanteric femur fracture History of lumpectomy of right breast Onset Date: ~1977 History of total vaginal hysterectomy (TVH) Onset Date: ~1971 Family History: Family History (Last Reviewed 04/30/20 @ 13:55 by Margaret Bradley LPN) Father , age 54 DVT (deep venous thrombosis) Mother , age 96 Hypertension CAD (coronary artery disease) Social History: (Last Updated 04/30/20 @ 16:37 by Alexis Kunz MD) Social History: adopted: No assisted: No Marital status: lives independently: Yes household members: spouse current occupational 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 - Vital Signs Patient's Vital Signs:: I have reviewed the patient's vital signs. Vital Signs: Vital Signs 06/21/20 06:50 06/21/20 07:25 06/21/20 08:00 Temperature 35.9 C L Pulse Rate 91 88 90 Respiratory Rate 18 20 20 Blood Pressure 155/78 H 156/90 H 162/99 H O2 Sat by Pulse Oximetry 94 95 96 06/21/20 08:03 Temperature Pulse Rate 89 Respiratory Rate Blood Pressure O2 Sat by Pulse Oximetry - X-Ray X-Ray #1 X-Ray: chest Interpretation: Interp. by me X-ray Comments: I personally reviewed images as well as official radiology report - CT/Ultrasound CT/Ultrasound Narrative: I reviewed official radiology report for head CT. - Progress/Reassessment Progress Note-Subjective: 06/21/20 09:33 Patient was checked out to me pending completion of ED workup with some labs still pending and officail radiology reads. Patient does have UT and CHF. IV ABx given and IV Lasix. I am not going to given sepsis fluids due to elevated BNP and CHF on CXR. I spoke to the patient's daughter in kenna room. The patient is actually quite somnolent. She will open her eyes when I yell in her ear (daughter states she is very [place]) but she will not otherwise communicate with me. Neurologic exam very difficult and she will not move her extremities by command. It is possible that this is infections relates mental status changes but seizure (post-ictal) or stroke is possible here too. I discussed with daughter MRI/additional testing but she would like to be more conservative and see if IV ABx work. She would not be in any window for stroke intervention so I feel that approach is very reasonable. At this point her daughter does not want to be aggressive, would like to take a wait and see approach. I spoke with Dr Scales who will admit the patient. Please see Dr Marcelo's note for full H&P/ED course before I took over at 8am.
[2020-06-21 07:23] LABS: Hematocrit 36.6 % (37.0-47.0); Hemoglobin 11.4 gm/dL (12.5-16.0); Mean Cell Volume 98.4 fl (78-100); Mean Corpuscular Hemoglobin 30.6 pg (27-31); Mean Corpuscular Hgb Conc 31.1 g/dl (32-36); Mean Platelet Volume 11.2 fl (8-12.5); Neutrophil # 5.3 K/mm3 (1.3-6.0); Neutrophil % 63.2 % (42-75.0); Platelet Count 190 K/mm3 (150-450); Red Blood Count 3.72 M/mm3 (4.2-5.4); Red Cell Distribution Width 13.9 % (11.5-14.0); White Blood Count 8.3 K/mm3 (4.0-10.5)
[2020-06-21 07:40] LABS: Albumin * 3.2 gm/dl (3.4-5.0); Anion Gap 16.7 mmol/L (6.8-13.8); BUN/Creatinine Ratio 15.2 (9.0-21.6); Bilirubin, Total 0.6 mg/dL (0.0-1.1); Ca. Corrected For Albumin 9.7 mg/dL (8.4-10.2); Calcium * 9.4 mg/dL (7.9-10.9); Carbon Dioxide 23.2 mmol/L (24-32.6); Magnesium 1.7 mg/dL (1.2-2.8); Potassium 2.9 mmol/L (3.4-4.6); Total Protein 6.7 gm/dL (6.2-8.2); Troponin I 0.029 ng/mL (0.00-0.10)
[2020-06-21 08:26] LABS: Urine Appearance Slightly Cloudy (CLEAR); Urine Color Yellow
[2020-06-21 08:27] LABS: Urine Bilirubin Negative (NEGATIVE); Urine Blood 25 /ul (NEGATIVE); Urine Ketone 5 mg/dL (NEGATIVE); Urine Specific Gravity 1.025 SP.GR. (1.005-1.010); Urine pH 5.5 pH (5.0-7.0)
[2020-06-21 08:28] LABS: Urine Bacteria 4+; Urine Nitrite Positive (NEGATIVE); Urine Protein 15 mg/dL (NEGATIVE); Urine RBC 0-5 /hpf (0-5); Urine Urobilinogen Normal (NORMAL); Urine WBC 25-50 /hpf (0-5)
[2020-06-21 08:30] LABS: Cocaine Ur Negative (NEGATIVE); Urine Barbiturate Negative (NEGATIVE); Urine Benzodiazepines Negative (NEGATIVE); Urine Opiates Negative (NEGATIVE); Urine PCP Negative (NEGATIVE); Urine THC Negative (NEGATIVE)
[2020-06-21] MEDS ORDERED: cefTRIAXone SODIUM 1,000 MG/100 ML BAG IV ONE (08:57)
[2020-06-21] MEDS: NORMAL SALINE 1,000 ML IV ONE ×2 (09:17→14:51)
[2020-06-21] MEDS ORDERED: FUROSEMIDE 10 MG/ML VIAL IV ONE (09:18)
[2020-06-21] MEDS ORDERED: ACETAMINOPHEN 500 MG TABLET PO PRN (14:09)
[2020-06-21] MEDS ORDERED: LORazepam 2 MG/ML DISP.SYRIN IV PRN (14:14)
[2020-06-21] MEDS ORDERED: PANTOPRAZOLE SODIUM 40 MG in NORMAL SALINE 100 ML IV SCH (14:15)
[2020-06-21] MEDS ORDERED: ENOXAPARIN SODIUM 40 MG/0.4 ML SYRG SC SCH (14:15)
[2020-06-21] MEDS: ASPIRIN 325 MG TABLET.DR PO SCH (14:25)
[2020-06-21] MEDS ORDERED: ENOXAPARIN SODIUM 80 MG/0.8 ML DISP.SYRIN SC SCH ×2 (14:45→15:00)
[2020-06-21] MEDS: POTASSIUM CHLORIDE IN WATER 100 ML IV SCH ×2 (14:59→15:54)
[2020-06-21] MEDS: ENOXAPARIN SODIUM 40 MG, ENOXAPARIN SODIUM 30 MG SC SCH ×2 (15:04)
--- NOTE | 2020-06-21 15:22 | HP ---
Chief Complaint - Chief Complaint Date of Service: 06/21/20 Time of Service: 14:48 Chief Complaint: Patient is nonverbal and not able to communicate. History of Present Illness: 84-year-old female with past medical history of atrial fibrillation, dementia, BPPV, hypertension, hyperlipidemia, gout, was brought to the ER by EMS for evaluation of altered mental status. Patient currently lives at the [facility] in the dementia unit and was discovered this morning by nursing staff who found her unresponsive and difficult to arouse. Initially the staff believed that the patient had a seizure and was in a postictal state however the event was not witnessed and could not be confirmed. She was brought to the ER was found to be unresponsive to verbal stimuli and only minimally responsive to painful stimuli. When her daughter arrived she reported that her mother had a similar but less severe event back 5 months ago and since then she has never been the same. Patient is unable to carry activities of daily living and has been more forgetful and confused. Her daughter also reports that she also became weaker and now ambulates with a walker. The patient does not have any known history of seizure disorder and was at her baseline last night. Her daughter reports that they spoke on the phone and her daughter was able to carry out a normal conversation. Once in the ER head CT was ordered and results were negative for any intracranial bleeding or acute findings, brain MRI was recommended. However the ERP reports that the patient's daughter preferred to take a more conservative and watchful approach and declined the brain MRI. She just wanted for the patient to be treated for UTI finding on her urinalysis. Medical History (Last Reviewed 06/21/20 @ 08:04 by Danitza Johnson RN) Hypertension (Chronic) Hypercholesteremia (Chronic) Atrial fibrillation (Inactive) Abdominal aortic aneurysm (Chronic) Vertigo Vertigo, benign paroxysmal Benign paroxysmal positional vertigo Chest pain in adult Contusion of foot, right Facial contusion Hand contusion Head injury Patella fracture Radius fracture Surgical History: Surgical History (Last Reviewed 06/21/20 @ 08:04 by Danitza Johnson RN) History of appendectomy Onset Date: ~1948 History of basal cell carcinoma excision Onset Date: ~2008 History of cataract extraction Onset Date: ~2006 History of colonoscopy Onset Date: ~2003 History of colonoscopy Onset Date: ~2008 History of hip surgery Onset Date: ~04/13/20 Dr. 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 Highest education level completed: high school graduate Service: No Tobacco: Smoking Status: Never smoker Alcohol: alcohol intake: never Substance Use: substance use type: does not use Dietary Habits: well-balanced diet: daily or most days caffeine: No Amber/Zoroastrianism: special amber needs: No Peds Patient Hx - Developmental: No Pertinent Hx Peds Patient Hx - Medical: No Pertinent Hx Peds Patient Hx - Cardiac/Respiratory: No Pertinent Hx Peds Patient Hx - Surgical: No Surgical History Patient History - Cancer: No Hx of Cancer Review Of Systems (GEN) - Review of Systems Generalized/Overall Review: Present: Weakness EENTM: Present: No Symptoms Reported Respiratory: Present: No Symptoms Reported Cardiac: Present: No Symptoms Reported Abdominal: Present: No Symptoms Reported Genitourinary: Present: No Symptoms Reported Musculoskeletal: Present: No Symptoms Reported Neurological: Present: Weakness, Pre-existing Deficit, Other - Altered mental status Skin: Present: No Symptoms Reported Endocrine: Present: No Symptoms Reported Immunizations: IMMUNIZATION HX Immunizations Up to Date Yes History of Influenza Vaccine Yes Hx Pneumococcal Vaccination Yes Allergies/Adverse Reactions: Allergies Allergy/AdvReac Type Severity Reaction Status Date / Time ciprofloxacin [From Cipro] Allergy Verified 06/21/20 14:02 ciprofloxacin HCl Allergy Verified 06/21/20 14:02 [From Cipro] Sulfa (Sulfonamide Allergy Verified 06/21/20 14:02 Antibiotics) Home Medications: HOME MEDICATIONS Calc/D3/Mag/Zn/Isadora/Theron/[place] [Calcium 600 mg Plus Vit D Tab] 1 ea PO DAILY 07/14/14 [Last Taken 07/14/14] acetaminophen 500 mg tablet 500 mg PO Q4H PRN #30 tab 05/13/20 [Last Taken Unknown] allopurinol 300 mg tablet 300 mg PO DAILY #30 tab 05/13/20 [Last Taken Unknown] aspirin 325 mg tablet 325 mg PO DAILY #30 tab 05/13/20 [Last Taken Unknown] calcium carbonate 600 mg (1,500 mg)-vitamin D3 500 unit capsule 1 cap PO DAILY #30 cap 05/13/20 [Last Taken Unknown] ferrous sulfate 325 mg (65 mg iron) tablet 325 mg PO DAILY #30 tab 05/13/20 [Last Taken Unknown] rivaroxaban 20 mg tablet 20 mg PO DAILY #30 tab 05/13/20 [Last Taken Unknown] sennosides 8.6 mg-docusate sodium 50 mg tablet 2 tab PO HS #60 tab 05/13/20 [Last Taken Unknown] Exam - Exam Vital Signs: Vital Signs - Last Taken Temp 36.5 C 06/21/20 14:04 Pulse 96 06/21/20 14:04 Resp 16 06/21/20 14:04 BP 150/64 H 06/21/20 14:04 Pulse Ox 98 06/21/20 14:04 Constitutional: Present: Alert, Well developed, Well nourished, No distress, Somnolent, Elderly ENT Exam: Present: normal ENT inspection Eye Exam: bilateral eye: normal inspection, PERRL, EOMI Neck: Present: non-tender, full range of motion, supple, normal inspection, trachea midline Back Exam: Present: normal inspection Breasts: Present: Exam deferred Respiratory: Present: chest non-tender, lungs clear, normal breath sounds, no respiratory distress, no accessory muscle use Cardiovascular/Chest: Present: normal peripheral pulses, no chest tenderness, no gallop, no JVD, no murmur, no rub, irregularly irregular Peripheral Pulses: dorsalis-pedis (R): 2+, dorsalis-pedis (L): 2+ Abdomen: Present: Normal bowel sounds, soft, nontender, nondistended, no rebound tenderness, no hepatospenomegaly, no masses /Rectal: Present: Exam deferred Extremity: Present: non-tender, no calf tenderness, pelvis stable, lower extremity edema - Right pedal edema +2 Skin Exam: Present: normal color, warm/dry, no cyanosis Lymphatic: Present: no adenopathy Neurologic: Present: alert, abnormal music publisher II-XII, motor weakness, disoriented x 3 Appearance: Present: impaired insight, other Eye contact: Present: other Thoughts: Present: other Diagnostic Studies: Abnormal Lab Results 06/21/20 06/21/20 06/21/20 Range/Units 07:17 07:17 07:17 RBC 3.72 L (4.2-5.4) M/mm3 Hgb 11.4 L (12.5-16.0) gm/dL Hct 36.6 L (37.0-47.0) % MCHC 31.1 L (32-36) g/dl Immature Gran % (Auto) 0.60 H (0.001-0.429) % Immature Gran # (Auto) 0.05 H (0.000-0.0310) K/mm3 Eosinophils % 3.8 H (0.0-3.0) % Potassium 2.9 L D (3.4-4.6) mmol/L Carbon Dioxide 23.2 L (24-32.6) mmol/L Anion Gap 16.7 H (6.8-13.8) mmol/L Est GFR (Non-Af Amer) 43 L (60-130) mL/min Random Glucose 160 H (70-110) mg/dL Lactic Acid, Venous 4.1 H* (0.4-2.0) mmol/L ALT 9 L (19-67) U/L B-Natriuretic Peptide 2220 H (5-550) pg/mL Albumin 3.2 L (3.4-5.0) gm/dl Urine Protein (NEGATIVE) mg/dL Urine Blood (NEGATIVE) /ul Urine Nitrate (NEGATIVE) Ur Leukocyte Esterase (NEGATIVE) /ul Urine WBC (0-5) /hpf Urine Bacteria (NONE) 06/21/20 Range/Units 07:45 RBC (4.2-5.4) M/mm3 Hgb (12.5-16.0) gm/dL Hct (37.0-47.0) % MCHC (32-36) g/dl Immature Gran % (Auto) (0.001-0.429) % Immature Gran # (Auto) (0.000-0.0310) K/mm3 Eosinophils % (0.0-3.0) % Potassium (3.4-4.6) mmol/L Carbon Dioxide (24-32.6) mmol/L Anion Gap (6.8-13.8) mmol/L Est GFR (Non-Af Amer) (60-130) mL/min Random Glucose (70-110) mg/dL Lactic Acid, Venous (0.4-2.0) mmol/L ALT (19-67) U/L B-Natriuretic Peptide (5-550) pg/mL Albumin (3.4-5.0) gm/dl Urine Protein 15 H (NEGATIVE) mg/dL Urine Blood 25 H (NEGATIVE) /ul Urine Nitrate Positive H (NEGATIVE) Ur Leukocyte Esterase 100 H (NEGATIVE) /ul Urine WBC 25-50 H (0-5) /hpf Urine Bacteria 4+ H (NONE) Laboratory Results WBC 8.3 K/mm3 (4.0-10.5) 06/21/20 07:17 RBC 3.72 M/mm3 (4.2-5.4) L 06/21/20 07:17 Hgb 11.4 gm/dL (12.5-16.0) L 06/21/20 07:17 Hct 36.6 % (37.0-47.0) L 06/21/20 07:17 MCV 98.4 fl (78-100) 06/21/20 07:17 MCH 30.6 pg (27-31) 06/21/20 07:17 MCHC 31.1 g/dl (32-36) L 06/21/20 07:17 RDW 13.9 % (11.5-14.0) 06/21/20 07:17 Plt Count 190 K/mm3 (150-450) 06/21/20 07:17 MPV 11.2 fl (8-12.5) 06/21/20 07:17 Immature Gran % (Auto) 0.60 % (0.001-0.429) H 06/21/20 07:17 Immature Gran # (Auto) 0.05 K/mm3 (0.000-0.0310) H 06/21/20 07:17 Neutrophils % 63.2 % (42-75.0) 06/21/20 07:17 Lymphocytes % 24.4 % (20-51) 06/21/20 07:17 Monocytes % 7.3 % (0.0-9) 06/21/20 07:17 Eosinophils % 3.8 % (0.0-3.0) H 06/21/20 07:17 Basophils % 0.7 % (0.0-1.0) 06/21/20 07:17 Nucleated RBC % 0.0 k/mm3 (0-1) 06/21/20 07:17 Neutrophils # 5.3 K/mm3 (1.3-6.0) 06/21/20 07:17 Lymphocytes # 2.03 k/mm3 (1.5-3.5) 06/21/20 07:17 Monocytes # 0.6 k/mm3 (0.0-1.0) 06/21/20 07:17 Eosinophils # 0.3 k/mm3 (0.0-0.7) 06/21/20 07:17 Absolute Basophils 0.1 k/mm3 (0.0-0.1) 06/21/20 07:17 Sodium 141 mmol/L (132-142) 06/21/20 07:17 Plasma Sodium 142 mmol/L (130-142) 06/21/20 07:17 Potassium 2.9 mmol/L (3.4-4.6) L D 06/21/20 07:17 Chloride 104 mmol/L (97-106) 06/21/20 07:17 Carbon Dioxide 23.2 mmol/L (24-32.6) L 06/21/20 07:17 Anion Gap 16.7 mmol/L (6.8-13.8) H 06/21/20 07:17 BUN 19 mg/dL (3-23) 06/21/20 07:17 Creatinine 1.25 mg/dL (0.4-1.4) 06/21/20 07:17 Est GFR (Non-Af Amer) 43 mL/min (60-130) L 06/21/20 07:17 BUN/Creatinine Ratio 15.2 (9.0-21.6) 06/21/20 07:17 Random Glucose 160 mg/dL (70-110) H 06/21/20 07:17 Lactic Acid, Venous 1.6 mmol/L (0.4-2.0) 06/21/20 10:00 Calcium 9.4 mg/dL (7.9-10.9) 06/21/20 07:17 Calcium Adj for Albumin 9.7 mg/dL (8.4-10.2) 06/21/20 07:17 Magnesium 1.7 mg/dL (1.2-2.8) 06/21/20 07:17 Total Bilirubin 0.6 mg/dL (0.0-1.1) 06/21/20 07:17 AST 19 U/L (0-48) 06/21/20 07:17 ALT 9 U/L (19-67) L 06/21/20 07:17 Alkaline Phosphatase 98 U/L (50-170) 06/21/20 07:17 Troponin I 0.029 ng/mL (0.00-0.10) 06/21/20 07:17 B-Natriuretic Peptide 2220 pg/mL (5-550) H 06/21/20 07:17 Total Protein 6.7 gm/dL (6.2-8.2) 06/21/20 07:17 Albumin 3.2 gm/dl (3.4-5.0) L 06/21/20 07:17 Urine Color Yellow 06/21/20 07:45 Urine Appearance Slightly cloudy (CLEAR) 06/21/20 07:45 Urine pH 5.5 pH (5.0-7.0) 06/21/20 07:45 Ur Specific [place] 1.025 SP.GR. (1.005-1.010) 06/21/20 07:45 Urine Protein 15 mg/dL (NEGATIVE) H 06/21/20 07:45 Urine Glucose (UA) Negative mg/dL (NEGATIVE) 06/21/20 07:45 Urine Ketones 5 mg/dL (NEGATIVE) 06/21/20 07:45 Urine Blood 25 /ul (NEGATIVE) H 06/21/20 07:45 Urine Nitrate Positive (NEGATIVE) H 06/21/20 07:45 Urine Bilirubin Negative mg/dl (NEGATIVE) 06/21/20 07:45 Prot Sulfosalicylic Acd 1+ mg/dL (0) 06/21/20 07:45 Urine Urobilinogen Normal EU/dl (NORMAL) 06/21/20 07:45 Ur Leukocyte Esterase 100 /ul (NEGATIVE) H 06/21/20 07:45 Urine RBC 0-5 /hpf (0-5) 06/21/20 07:45 Urine WBC 25-50 /hpf (0-5) H 09/27/20 07:45 Ur Epithelial Cells 0-5 /hpf (0-5) 06/21/20 07:45 Urine Bacteria 4+ (NONE) H 06/21/20 07:45 Urine Culture Comments Culture to follow 06/21/20 07:45 Urine Opiates Screen Negative (NEGATIVE) 06/21/20 08:13 Barbiturate Screen Negative (NEGATIVE) 06/21/20 08:13 Ur Phencyclidine Scrn Negative (NEGATIVE) 06/21/20 08:13 Urine Amphetamine Negative (NEGATIVE) 06/21/20 08:13 U Benzodiazepines Scrn Negative (NEGATIVE) 06/21/20 08:13 Urine Cocaine Screen Negative (NEGATIVE) 06/21/20 08:13 Urine Marijuana (THC) Negative (NEGATIVE) 06/21/20 08:13 Assessment/Plan - Narrative Narrative: Patient was evaluated medical chart was reviewed and decision to admit for a diagnosis of altered mental status due suspected ischemic stroke was made. Patient is awake and alert but disoriented and unable to follow command. A thorough neurological evaluation was difficult due to her altered mental status. Currently she only responds to painful stimuli. We will order neurochecks to continue monitoring her neurocognitive condition. A thorough discussion was held at bedside with her daughter who wants a conservative and watchful approach but after explaining her mother's condition with her she agreed to a brain MRI for further work-up. Therefore brain MRI was scheduled for tomorrow morning. In the meantime due to patient's altered mental status we will hold all p.o. medications and treat with only IV forms of medication. We will also treat her with therapeutic levels of Lovenox as ordered by guidelines. Patient had a similar event 5 months ago and has never regained full cognitive function but her daughter reports that this is way more severe than the previous event. Given the patient's clinical presentation and the details of the event it is very likely that the patient had an acute ischemic stroke, this will be confirmed or ruled out on the brain MRI. We will follow-up with the results. The patient was also found to have a UTI on her urinalysis so we will also treat her IV antibiotics. Her BNP was also elevated so she was treated with 1 dose of IV diuretics was administered in the ER but we will continue to treat her with additional doses to treat apparant CHF. Normally in the case of CHF, IV hydration would be contraindicated however since the patient will be placed on n.p.o. we will order maintenance soft hydration to avoid dehydration. As a precaution we will keep her on telemetry monitoring to watch her closely. Patient also had hypokalemia on labs so potassium replacement will be administered. - Assessment/Plan (1) Acute CHF (congestive heart failure) Problem: Acute (2) Altered mental status Problem: Acute (3) Suspected cerebrovascular accident (CVA) Problem: Acute (4) Dementia Problem: Acute (5) UTI (urinary tract infection) Problem: Acute (6) Hypokalemia Problem: Acute (7) CKD (chronic kidney disease) stage 3, GFR 30-59 ml/min Problem: Chronic (8) Atrial fibrillation Problem: Chronic (9) HTN (hypertension) Problem: Acute
[2020-06-21] MEDS: SENNOSIDES/DOCUSATE SODIUM 1 TAB TABLET PO SCH (21:11)
[2020-06-21] MEDS: FUROSEMIDE 10 MG/ML VIAL IV SCH (21:33)
[2020-06-22] MEDS: PANTOPRAZOLE SODIUM 40 MG in NORMAL SALINE 100 ML IV SCH ×3 (00:38→23:53)
[2020-06-22] MEDS: ENOXAPARIN SODIUM 40 MG, ENOXAPARIN SODIUM 30 MG SC SCH ×4 (03:30→17:51)
[2020-06-22 06:46] LABS: Hematocrit 34.4 % (37.0-47.0); Mean Cell Volume 97.7 fl (78-100); Mean Corpuscular Hemoglobin 31.3 pg (27-31); Mean Platelet Volume 11.9 fl (8-12.5); Neutrophil # 6.8 K/mm3 (1.3-6.0); Neutrophil % 72.9 % (42-75.0); Platelet Count 203 K/mm3 (150-450); Red Blood Count 3.52 M/mm3 (4.2-5.4); Red Cell Distribution Width 14.1 % (11.5-14.0); White Blood Count 9.4 K/mm3 (4.0-10.5)
[2020-06-22 06:58] LABS: Albumin * 3.1 gm/dl (3.4-5.0); Anion Gap 12.7 mmol/L (6.8-13.8); Bilirubin, Total 0.6 mg/dL (0.0-1.1); Ca. Corrected For Albumin 9.8 mg/dL (8.4-10.2); Calcium * 9.4 mg/dL (7.9-10.9); Carbon Dioxide 29.3 mmol/L (24-32.6); Total Protein 6.5 gm/dL (6.2-8.2)
[2020-06-22] MEDS ORDERED: ALLOPURINOL 300 MG TABLET PO SCH (09:00)
[2020-06-22] MEDS ORDERED: FUROSEMIDE 10 MG/ML VIAL IV SCH (09:00)
[2020-06-22] MEDS ORDERED: RIVAROXABAN 20 MG TABLET PO SCH (09:00)
[2020-06-22] MEDS: FUROSEMIDE 10 MG/ML VIAL IV SCH ×2 (09:47→20:13)
[2020-06-22] MEDS: FERROUS SULFATE 325 MG TABLET PO SCH (10:07)
[2020-06-22] MEDS: ASPIRIN 325 MG TABLET.DR PO SCH (10:07)
[2020-06-22] MEDS ORDERED: POTASSIUM CHLORIDE 20 MEQ/15 ML UDC PO ONE (11:48)
--- NOTE | 2020-06-22 14:48 | PN ---
Subjective - Date and Time Seen Date: 06/22/20 Time: 08:00 Subjective Narrative: Katheryn is more alert today although confused. She is difficult to converse with, although speech is clear. She does not appear to understand questions. She has no concerns. She does not follow commands. Objective - Vitals Vitals: Last Vital Signs Temp 36.8 C 06/22/20 14:20 Pulse 91 06/22/20 14:20 Resp 20 06/22/20 14:20 BP 125/88 06/22/20 14:20 Pulse Ox 97 06/22/20 14:20 - Abnormal Lab Findings Abnormal Lab Findings: Abnormal Lab Results 06/22/20 06/22/20 Range/Units 06:35 06:35 RBC 3.52 L (4.2-5.4) M/mm3 Hgb 11.0 L (12.5-16.0) gm/dL Hct 34.4 L (37.0-47.0) % MCH 31.3 H (27-31) pg RDW 14.1 H (11.5-14.0) % Lymphocytes % 16.6 L (20-51) % Neutrophils # 6.8 H (1.3-6.0) K/mm3 Potassium 3.0 L (3.4-4.6) mmol/L Est GFR (Non-Af Amer) 39 L (60-130) mL/min ALT 13 L (19-67) U/L Albumin 3.1 L (3.4-5.0) gm/dl - Exam Constitutional: Present: Alert, No distress. Absent: Oriented x3 Respiratory: Present: lungs clear, normal breath sounds Cardiovascular/Chest: Present: no murmur, irregularly irregular Abdomen: Present: Normal bowel sounds, soft, nontender, nondistended Skin Exam: Present: normal color, warm/dry, no cyanosis Assessment/Plan Plan Narrative: Infectious encephalopathy secondary to UTI causing confusion and unresponsiveness. SHe has improved and is sitting up and talking today, although remains confused. Continue rocephin. Consulted therapies to work on strength. She is not near her baseline and unable to be discharged. She cannot take oral antibiotics due to mental status, continue IV antibiotics. Anticipate another 2 midnights before able to discharge to home. MRI cancelled today as I do not suspect stroke and symptoms are from UTI which is evident by positive urine culture and improvement with antibiotic treatment. Replacing potassium and monitoring. - Problems/Diagnosis (1) Infectious encephalopathy Problem: Acute (2) Acute delirium Problem: Acute (3) UTI (urinary tract infection) Problem: Acute Qualifiers: Urinary tract infection type: acute cystitis Hematuria presence: without hematuria Qualified Code(s): N30.00 - Acute cystitis without hematuria (4) Hypokalemia Problem: Acute
[2020-06-22] MEDS: SENNOSIDES/DOCUSATE SODIUM 1 TAB TABLET PO SCH (20:10)
[2020-06-23] MEDS: ENOXAPARIN SODIUM 40 MG, ENOXAPARIN SODIUM 30 MG SC SCH ×2 (02:41)
[2020-06-23 06:53] LABS: Hematocrit 36.8 % (37.0-47.0); Hemoglobin 11.5 gm/dL (12.5-16.0); Mean Cell Volume 98.4 fl (78-100); Mean Corpuscular Hemoglobin 30.7 pg (27-31); Mean Corpuscular Hgb Conc 31.3 g/dl (32-36); Neutrophil # 4.7 K/mm3 (1.3-6.0); Neutrophil % 64.3 % (42-75.0); Platelet Count 186 K/mm3 (150-450); Red Blood Count 3.74 M/mm3 (4.2-5.4); Red Cell Distribution Width 13.8 % (11.5-14.0); White Blood Count 7.3 K/mm3 (4.0-10.5)
[2020-06-23 07:04] LABS: Albumin * 3.2 gm/dl (3.4-5.0); Anion Gap 11.3 mmol/L (6.8-13.8); BUN/Creatinine Ratio 14.8 (9.0-21.6); Bilirubin, Total 0.7 mg/dL (0.0-1.1); Ca. Corrected For Albumin 9.8 mg/dL (8.4-10.2); Calcium * 9.5 mg/dL (7.9-10.9); Carbon Dioxide 31.6 mmol/L (24-32.6); Potassium 2.9 mmol/L (3.4-4.6); Total Protein 6.7 gm/dL (6.2-8.2)
[2020-06-23] MEDS: FERROUS SULFATE 325 MG TABLET PO SCH (08:41)
[2020-06-23] MEDS: ASPIRIN 325 MG TABLET.DR PO SCH (08:41)
[2020-06-23] MEDS: PANTOPRAZOLE SODIUM 40 MG in NORMAL SALINE 100 ML IV SCH ×2 (12:13→23:43)
[2020-06-23] MEDS: POTASSIUM CHLORIDE 20 MEQ/15 ML UDC PO SCH ×2 (14:48→20:16)
[2020-06-23] MEDS: SENNOSIDES/DOCUSATE SODIUM 1 TAB TABLET PO SCH (20:16)
--- NOTE | 2020-06-23 22:33 | PN ---
Subjective - Date and Time Seen Date: 06/23/20 Time: 11:30 Subjective Narrative: Katheryn is pleasantly confused. She has no concerns and reports feeling well. She does not appropriately answer questions and believes nursing staff to be friends or family members. Objective - Vitals Vitals: Last Vital Signs Temp 36.5 C 06/23/20 18:30 Pulse 99 06/23/20 18:30 Resp 20 06/23/20 18:30 BP 137/70 06/23/20 18:30 Pulse Ox 97 06/23/20 18:30 - Abnormal Lab Findings Abnormal Lab Findings: Abnormal Lab Results 06/23/20 06/23/20 Range/Units 06:46 06:46 RBC 3.74 L (4.2-5.4) M/mm3 Hgb 11.5 L (12.5-16.0) gm/dL Hct 36.8 L (37.0-47.0) % MCHC 31.3 L (32-36) g/dl Lymphocytes % 19.5 L (20-51) % Monocytes % 9.3 H (0.0-9) % Eosinophils % 5.7 H (0.0-3.0) % Lymphocytes # 1.43 L (1.5-3.5) k/mm3 Potassium 2.9 L (3.4-4.6) mmol/L Creatinine 1.49 H (0.4-1.4) mg/dL Est GFR (Non-Af Amer) 35 L (60-130) mL/min ALT 12 L (19-67) U/L Albumin 3.2 L (3.4-5.0) gm/dl - Exam Constitutional: Present: Alert, No distress. Absent: Oriented x3 ENT Exam: Present: hard of hearing Respiratory: Present: lungs clear, normal breath sounds Cardiovascular/Chest: Present: no murmur, irregularly irregular Abdomen: Present: Normal bowel sounds, soft, nontender, nondistended, no rebound tenderness Skin Exam: Present: normal color, warm/dry, no cyanosis Neurologic: Present: no motor/sensory deficits, alert, disoriented x 3 Assessment/Plan Plan Narrative: Katheryn appears to be near her baseline. Potassium is still low, will replace and monitor. Continue rocephin. Plan to discharge tomorrow if continues to improve. - Problems/Diagnosis (1) Infectious encephalopathy Problem: Acute (2) Acute delirium Problem: Acute (3) UTI (urinary tract infection) Problem: Acute Qualifiers: Urinary tract infection type: acute cystitis Hematuria presence: without hematuria Qualified Code(s): N30.00 - Acute cystitis without hematuria (4) Hypokalemia Problem: Acute
[2020-06-24 06:30] LABS: Hematocrit 37.1 % (37.0-47.0); Hemoglobin 11.5 gm/dL (12.5-16.0); Mean Cell Volume 98.7 fl (78-100); Mean Corpuscular Hemoglobin 30.6 pg (27-31); Mean Platelet Volume 11.5 fl (8-12.5); Neutrophil # 5.1 K/mm3 (1.3-6.0); Neutrophil % 66.3 % (42-75.0); Platelet Count 185 K/mm3 (150-450); Red Blood Count 3.76 M/mm3 (4.2-5.4); Red Cell Distribution Width 13.7 % (11.5-14.0); White Blood Count 7.6 K/mm3 (4.0-10.5)
[2020-06-24 06:43] LABS: Anion Gap 11.5 mmol/L (6.8-13.8); Bilirubin, Total 0.5 mg/dL (0.0-1.1); Calcium * 9.5 mg/dL (7.9-10.9); Carbon Dioxide 30.8 mmol/L (24-32.6); Potassium 3.3 mmol/L (3.4-4.6); Total Protein 6.6 gm/dL (6.2-8.2)
[2020-06-24] MEDS: POTASSIUM CHLORIDE 20 MEQ/15 ML UDC PO SCH (08:17)
[2020-06-24] MEDS: FERROUS SULFATE 325 MG TABLET PO SCH (08:17)
[2020-06-24] MEDS: ASPIRIN 325 MG TABLET.DR PO SCH (08:17)
[2020-06-24] MEDS ORDERED: POTASSIUM CHLORIDE 20 MEQ TABLET.SA PO SCH (09:00)
[2020-06-24] MEDS ORDERED: RIVAROXABAN 20 MG TABLET PO SCH (09:00)
--- NOTE | 2020-06-24 09:40 | DS ---
(1) Infectious encephalopathy Problem: Resolved (2) Acute delirium Problem: Resolved (3) UTI (urinary tract infection) Problem: Acute Qualifiers: Urinary tract infection type: acute cystitis Hematuria presence: without hematuria Qualified Code(s): N30.00 - Acute cystitis without hematuria (4) Hypokalemia Problem: Acute (5) Dementia Problem: Chronic Date of Discharge:: 06/24/20 Hospital Course: Katheryn is an 84 yo female with chronic dementia that was admitted for acute change in mentation with delirium and was even unresponsive initially. She had a head CT that was negative for acute change. Workup showed evidence of UTI. She was treated with Rocephin IV and gradually her mental status improved to baseline. She had low potassium that was replaced. She is back to her baseline mental status today of chronic dementia and is ready for discharge. Procedures Performed: none Results and Findings: Pending Mircobiology Results 06/21/20 10:22 Blood Blood Culture - Preliminary NO GROWTH AFTER 48 HOURS 06/21/20 10:00 Blood Blood Culture - Preliminary NO GROWTH AFTER 48 HOURS Lab Pending Results 06/21/20 07:17: WBC 8.3, RBC 3.72 L, Hgb 11.4 L, Hct 36.6 L, MCV 98.4, MCH 30.6, MCHC 31.1 L, RDW 13.9, Plt Count 190, MPV 11.2, Immature Gran % (Auto) 0.60 H, Immature Gran # (Auto) 0.05 H, Neutrophils % 63.2, Lymphocytes % 24.4, Monocytes % 7.3, Eosinophils % 3.8 H, Basophils % 0.7, Nucleated RBC % 0.0, Neutrophils # 5.3, Lymphocytes # 2.03, Monocytes # 0.6, Eosinophils # 0.3, Absolute Basophils 0.1 06/21/20 07:17: Sodium 141, Plasma Sodium 142, Potassium 2.9 L D, Chloride 104, Carbon Dioxide 23.2 L, Anion Gap 16.7 H, BUN 19, Creatinine 1.25, Est GFR (Non- Af Amer) 43 L, BUN/Creatinine Ratio 15.2, Random Glucose 160 H, Calcium 9.4, Calcium Adj for Albumin 9.7, Magnesium 1.7, Total Bilirubin 0.6, AST 19, ALT 9 L, Alkaline Phosphatase 98, Troponin I 0.029, B-Natriuretic Peptide 2220 H, Total Protein 6.7, Albumin 3.2 L 06/21/20 07:17: Lactic Acid, Venous 4.1 H* 06/21/20 07:45: Urine Color Yellow, Urine Appearance Slightly cloudy, Urine pH 5.5, Ur Specific [place] 1.025, Urine Protein 15 H, Urine Glucose (UA) Negative, Urine Ketones 5, Urine Blood 25 H, Urine Nitrate Positive H, Urine Bilirubin Negative, Prot Sulfosalicylic Acd 1+, Urine Urobilinogen Normal, Ur Leukocyte Esterase 100 H, Urine RBC 0-5, Urine WBC 25-50 H, Ur Epithelial Cells 0-5, Urine Bacteria 4+ H, Urine Culture Comments Culture to follow 06/21/20 08:13: Urine Opiates Screen Negative, Barbiturate Screen Negative, Ur Phencyclidine Scrn Negative, Urine Amphetamine Negative, U Benzodiazepines Scrn Negative, Urine Cocaine Screen Negative, Urine Marijuana (THC) Negative 06/21/20 10:00: Lactic Acid, Venous 1.6 06/22/20 06:35: WBC 9.4, RBC 3.52 L, Hgb 11.0 L, Hct 34.4 L, MCV 97.7, MCH 31.3 H, MCHC 32.0, RDW 14.1 H, Plt Count 203, MPV 11.9, Immature Gran % (Auto) 0.30, Immature Gran # (Auto) 0.03, Neutrophils % 72.9, Lymphocytes % 16.6 L, Monocytes % 7.4, Eosinophils % 2.2, Basophils % 0.6, Nucleated RBC % 0.0, Neutrophils # 6.8 H, Lymphocytes # 1.55, Monocytes # 0.7, Eosinophils # 0.2, Absolute Basophils 0.1 06/22/20 06:35: Sodium 142, Plasma Sodium 142, Potassium 3.0 L, Chloride 103, Carbon Dioxide 29.3, Anion Gap 12.7, BUN 19, Creatinine 1.36, Est GFR (Non-Af Amer) 39 L, BUN/Creatinine Ratio 14.0, Random Glucose 94 D, Calcium 9.4, Calcium Adj for Albumin 9.8, Total Bilirubin 0.6, AST 23, ALT 13 L, Alkaline Phosphatase 90, Total Protein 6.5, Albumin 3.1 L 06/23/20 06:46: WBC 7.3 D, RBC 3.74 L, Hgb 11.5 L, Hct 36.8 L, MCV 98.4, MCH 30.7, MCHC 31.3 L, RDW 13.8, Plt Count 186, MPV 12.0, Immature Gran % (Auto) 0.40, Immature Gran # (Auto) 0.03, Neutrophils % 64.3, Lymphocytes % 19.5 L, Monocytes % 9.3 H, Eosinophils % 5.7 H, Basophils % 0.8, Nucleated RBC % 0.0, Neutrophils # 4.7, Lymphocytes # 1.43 L, Monocytes # 0.7, Eosinophils # 0.4, Absolute Basophils 0.1 06/23/20 06:46: Sodium 139, Plasma Sodium 139, Potassium 2.9 L, Chloride 99, Carbon Dioxide 31.6, Anion Gap 11.3, BUN 22, Creatinine 1.49 H, Est GFR (Non-Af Amer) 35 L, BUN/Creatinine Ratio 14.8, Random Glucose 93, Calcium 9.5, Calcium Adj for Albumin 9.8, Total Bilirubin 0.7, AST 21, ALT 12 L, Alkaline Phosphatase 89, Total Protein 6.7, Albumin 3.2 L 06/24/20 06:26: WBC 7.6, RBC 3.76 L, Hgb 11.5 L, Hct 37.1, MCV 98.7, MCH 30.6, MCHC 31.0 L, RDW 13.7, Plt Count 185, MPV 11.5, Immature Gran % (Auto) 0.50 H, Immature Gran # (Auto) 0.04 H, Neutrophils % 66.3, Lymphocytes % 16.3 L, Monocytes % 9.9 H, Eosinophils % 6.2 H, Basophils % 0.8, Nucleated RBC % 0.0, Neutrophils # 5.1, Lymphocytes # 1.24 L, Monocytes # 0.8, Eosinophils # 0.5, Absolute Basophils 0.1 06/24/20 06:26: Sodium 139, Plasma Sodium 139, Potassium 3.3 L, Chloride 100, Carbon Dioxide 30.8, Anion Gap 11.5, BUN 30 H, Creatinine 1.67 H, Est GFR (Non-A f Amer) 31 L, BUN/Creatinine Ratio 18.0, Random Glucose 95, Calcium 9.5, Calcium Adj for Albumin 10.0, Total Bilirubin 0.5, AST 25, ALT 16 L, Alkaline Phosphatase 90, Total Protein 6.6, Albumin 3.0 L Discharge Location: [facility] Disposition: Home self-care Condition: Fair Discharge Activity: Activity as tolerated Discharge Diet: General/regular food Referrals: Saul Garcia DO [Primary Care Provider] - One Week (1 week video visit) Problem Oriented Discharge Instructions to Patient/Family: Urinary Tract Infection, Adult, [id number] Additional Patient Instructions (free text): [facility] at discharge- please fax discharge summary, instructions, and medications and call report. Prescriptions (Any new or edited meds): Potassium Chloride [K-Dur] 20 meq PO DAILY #30 tablet.sa Transmission Status: Pending to [facility] Complete Home Medications List: Complete Home Medication List: Calc/D3/Mag/Zn/[place] [Calcium 600 mg Plus Vit D Tab] 1 ea PO DAILY 07/14/14 acetaminophen 500 mg tablet 500 mg PO Q4H PRN #30 tab 05/13/20 allopurinol 300 mg tablet 300 mg PO DAILY #30 tab 05/13/20 aspirin 325 mg tablet 325 mg PO DAILY #30 tab 05/13/20 calcium carbonate 600 mg (1,500 mg)-vitamin D3 500 unit capsule 1 cap PO DAILY #30 cap 05/13/20 ferrous sulfate 325 mg (65 mg iron) tablet 325 mg PO DAILY #30 tab 05/13/20 rivaroxaban 20 mg tablet 20 mg PO DAILY #30 tab 05/13/20 sennosides 8.6 mg-docusate sodium 50 mg tablet 2 tab PO HS #60 tab 05/13/20 Potassium Chloride [K-Dur] 20 meq PO DAILY #30 tablet.sa 06/24/20 Rivaroxaban [Xarelto] 20 mg PO DAILY tablet 06/24/20 Amb Orders for Discharge: Comprehensive Metabolic Panel Time Frame: 1 Week, Facility: [facility], Location: Laboratory Forms: Patient Portal Registration
[2020-06-24 11:20] VITALS: BP 136/72
== END 2020-06-24 11:15 | disposition home or self-care (01) | DRG 71 ==
LOC: MS 06:45 → ER 06:45 → OBSVTOIN 09:22 → MS 13:40
PROVIDERS: ADMIT Family Medicine; ATTEND Family Medicine
DX: I13.0 Hypertensive heart and chronic kidney disease with heart failure and stage 1 through stage 4 chronic kidney disease, or unspecified chronic kidney disease; N18.3 Chronic kidney disease, stage 3 (moderate); I48.91 Unspecified atrial fibrillation; F03.90 Unspecified dementia, unspecified severity, without behavioral disturbance, psychotic disturbance, mood disturbance, and anxiety; E87.6 Hypokalemia; I50.9 Heart failure, unspecified; R53.1 Weakness; I25.2 Old myocardial infarction; G93.49 Other encephalopathy; N30.00 Acute cystitis without hematuria

== ENCOUNTER 2020-11-30 10:14 | Observation (INO) ==
[2020-11-30] MEDS ORDERED: MIDAZOLAM HCL/PF 5 MG/ML VIAL IV ONE ×2 (10:37→11:37)
[2020-11-30 10:38] LABS: Hematocrit 40.8 % (37.0-47.0); Hemoglobin 12.4 gm/dL (12.5-16.0); Mean Cell Volume 101.2 fl (78-100); Mean Corpuscular Hemoglobin 30.8 pg (27-31); Mean Corpuscular Hgb Conc 30.4 g/dl (32-36); Mean Platelet Volume 11.3 fl (8-12.5); Neutrophil # 5.4 K/mm3 (1.3-6.0); Neutrophil % 44.6 % (42-75.0); Platelet Count 185 K/mm3 (150-450); Red Blood Count 4.03 M/mm3 (4.2-5.4); Red Cell Distribution Width 13.4 % (11.5-14.0); White Blood Count 12.1 K/mm3 (4.0-10.5)
[2020-11-30] MEDS ORDERED: NORMAL SALINE 500 ML IV ONE (10:38)
--- NOTE | 2020-11-30 10:44 | ERNOTE ---
Neuro HPI ER Record Date of Service: 11/30/20 Presenting Symptoms: other - unresponsive,seizure Time Seen by Provider: 11/30/20 10:15 Source: EMS, RN notes reviewed, EMS notes reviewed, jail records, past records Exam Limitations: clinical condition Immunizations: IMMUNIZATION HX Immunizations Up to Date Yes History of Influenza Vaccine Yes Hx Pneumococcal Vaccination Yes Allergies/Adverse Reactions: Allergies Allergy/AdvReac Type Severity Reaction Status Date / Time ciprofloxacin [From Cipro] Allergy Verified 10/28/20 11:39 ciprofloxacin HCl Allergy Verified 10/28/20 11:39 [From Cipro] Sulfa (Sulfonamide Allergy Verified 10/28/20 11:39 Antibiotics) Home Medications: HOME MEDICATIONS acetaminophen 500 mg tablet 500 mg PO Q4H PRN #30 tab 05/13/20 [Last Taken Unknown] Potassium Chloride [K-Dur] 20 meq PO DAILY #30 tablet.sa 06/24/20 [Last Taken Unknown] Cephalexin [Keflex] 500 mg PO BID #14 cap 10/24/20 [Last Taken Unknown] D-Mannose [Mannxtra] 2,400 gm PO DAILY 10/24/20 [Last Taken Unknown] allopurinol 300 mg tablet 300 mg PO DAILY #28 tab 10/26/20 [Last Taken Unknown] calcium carbonate 600 mg (1,500 mg)-vitamin D3 500 unit capsule 1 cap PO DAILY #28 cap 10/26/20 [Last Taken Unknown] ferrous sulfate 325 mg (65 mg iron) tablet 325 mg PO DAILY #28 tab 10/26/20 [Last Taken Unknown] sennosides 8.6 mg-docusate sodium 50 mg tablet 2 tab PO HS #56 tab 10/26/20 [Last Taken Unknown] nitrofurantoin monohydrate/macrocrystals 100 mg capsule 100 mg PO DAILY 30 Days #30 cap 10/27/20 [Last Taken Unknown] aspirin 325 mg tablet 325 mg PO DAILY #28 tab 11/23/20 [Last Taken Unknown] - History of Present Illness Narrative: Patient arrives via EMS cart from CT.Pt was 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 Pt had seizures, RUE tonic clonic movements,per EMS report. Patient was seen 1 wek ago, at [facility] ED , for fall/head injury. CT scan was negative for acute injury/ICH/CVA. ED records reviewed . Patient has h/o chronic A Fib,She takes ASA 81 mg daily,She is not taking anticoagulants. Patient code status is DNR , per [facility] records and per Pt's daughter ( Lorna report ). Review of Systems - Narrative Narrative: Not able to obtain ROS due to medical condition,Pt is unresponsive . Medical History (Last Reviewed 10/24/20 @ 11:20 by Raul Arceo DO) Hypertension (Chronic) Hypercholesteremia (Chronic) Atrial fibrillation (Inactive) Abdominal aortic aneurysm (Chronic) Vertigo Vertigo, benign paroxysmal Benign paroxysmal positional vertigo Chest pain in adult Contusion of foot, right Facial contusion Hand contusion Head injury Patella fracture Radius fracture Surgical History: Surgical History (Last Reviewed 10/24/20 @ 11:20 by Raul Arceo DO) History of appendectomy Onset Date: ~1947 History of basal cell carcinoma excision Onset Date: ~2008 History of cataract extraction Onset Date: ~2006 History of colonoscopy Onset Date: ~2003 History of colonoscopy Onset Date: ~2008 History of hip surgery Onset Date: ~04/13/20 Dr. Kunz: Closed reduction, cephalo-medullary fixation left intertrochanteric femur fracture History of lumpectomy of right breast Onset Date: ~1977 History of total vaginal hysterectomy (TVH) Onset Date: ~1971 Family History: Family History (Last Reviewed 10/24/20 @ 11:20 by Raul Arceo DO) Father , age 54 DVT (deep venous thrombosis) Mother , age 96 Hypertension CAD (coronary artery disease) Social History: (Last Updated 10/28/20 @ 13:38 by Chrissy Haider DPM) Social History: adopted: No jail: Yes jail comment: [place] Marital status: lives independently: Yes household members: spouse current occupational 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 No laceration . Eye Exam: Normal inspection: bilateral, PERRL: bilateral, EOMI: bilateral Ears, Nose, Throat: Present: normal pharynx, dry mucous membranes. Absent: nasal congestion Neck: Present: normal inspection, supple. Absent: carotid bruit, lymphadenopathy (R), lymphadenopathy (L), thyromegaly Respiratory: Present: no respiratory distress, normal breath sounds, no accessory muscle use, lungs clear Cardiovascular/Chest: Present: regular rate, rhythm, no murmur, normal peripheral pulses Peripheral Pulses: N=norm/S=strong/W=weak/B=bound/A=absent: Carotid (R): Normal, Carotid (L): Normal, Radial (R): Normal, Radial (L): Normal, Femoral (R): Normal, Femoral (L): Normal, Dorsalis-pedis (R): Normal, Dorsalis-pedis (L): Normal Gastrointestinal/Abdominal: Present: normal bowel sounds, nondistended, soft, no organomegaly Back Exam: Present: normal inspection Extremity Exam: Present: normal inspection, no edema Skin Exam: Present: normal color Lymphatic Exam: Present: no adenopathy [place] Coma Scale - Assess Eye Opening: Spontaneous Motor: None Verbal: None - Total Coma Scale Total: 6 Progress - Vital Signs Vital Signs: Vital Signs 11/30/20 10:15 11/30/20 10:17 Pulse Rate 90 93 Respiratory Rate 18 Blood Pressure 167/74 H O2 Sat by Pulse Oximetry 93 - EKG EKG #1 EKG: atrial fibrillation EKG read: Interp. by hi - septal myocardial infarct,probably old - Progress/Reassessment Chief Complaint: CerebroVascular Accident Progress Note-Subjective: 11/30/20 12:14 Patient is afebrile,VSS,POx= 95% on Oxygen 2L per NC. CT scan of head= negative . Seizures controlled with Versed 2 mg x 2 and Keppra 100 mg IV . Chest X ray = no pulmonary infiltrates . Labs = mild leukocytosis, elevated lactic acid , UA=negative . Sodium elevated ( 144 ) and potassium is low(3.1). Pt was given IVF and broad spectrum antibiotic ( Zosyn ) for possible sepsis. Plan= Pt condition and tests results discussed with Dr Garcia who agreed with plan . Pt is admited to [facility] . Departure Clinical Impression: Seizure, Altered mental status, Sepsis, Hypernatremia - Departure Disposition: Still a patient Condition: Stable Referrals: Saul Garcia DO [Primary Care Provider] -
[2020-11-30 10:46] LABS: Prothrombin Time (Patient) 11.5 Seconds (9.1-10.7)
[2020-11-30 10:47] LABS: INR 1.11 INR (0.92-1.08); Partial Thrombolplastin Time 25.1 Seconds (24-32)
[2020-11-30 10:52] LABS: Albumin * 3.9 gm/dl (3.4-5.0); BUN/Creatinine Ratio 13.6 (9.0-21.6); Bilirubin, Total 0.5 mg/dL (0.0-1.1); Ca. Corrected For Albumin 9.2 mg/dL (8.4-10.2); Calcium * 9.4 mg/dL (7.9-10.9); Carbon Dioxide 17.1 mmol/L (24-32.6); Potassium 3.1 mmol/L (3.4-4.6); Total Protein 7.4 gm/dL (6.2-8.2)
[2020-11-30 11:13] LABS: Troponin I 0.029 ng/mL (0.00-0.10)
[2020-11-30] MEDS ORDERED: POTASSIUM CHLORIDE/D5-0.5NS 1,000 ML IV ONE (11:15)
[2020-11-30 11:18] LABS: TSH * 5.6 uIU/mL (0.358-3.74)
[2020-11-30 11:23] LABS: Urine Bilirubin Negative (NEGATIVE); Urine Blood Negative /ul (NEGATIVE); Urine Ketone Negative (NEGATIVE); Urine Nitrite Negative (NEGATIVE); Urine Protein 15 mg/dL (NEGATIVE); Urine Specific Gravity 1.025 SP.GR. (1.005-1.010); Urine Urobilinogen Normal (NORMAL)
[2020-11-30 11:37] LABS: Urine Appearance Clear (CLEAR); Urine Bacteria 1+; Urine Color Yellow; Urine RBC 0-5 /hpf (0-5); Urine WBC 0-5 /hpf (0-5)
[2020-11-30] MEDS ORDERED: PIPERACILLIN SODIUM/TAZOBACTAM 3.375 GM in DEXTROSE 5 % IN WATER 100 ML IV ONE ×2 (11:46)
[2020-11-30] MEDS ORDERED: 0.5 NORMAL SALINE 1,000 ML IV ONE (12:15)
[2020-11-30] MEDS ORDERED: LORazepam 2 MG/ML DISP.SYRIN IV ONE (15:27)
--- NOTE | 2020-11-30 16:13 | HP ---
Chief Complaint - Chief Complaint Date of Service: 11/30/20 Time of Service: 16:12 Chief Complaint: New onset seizure History of Present Illness: Katheryn is an 85 yo female with dementia. She is a resident at the [facility] where she was witnessed to have a seizure. She had no injury with the seizure, but has had falls recently that involved hitting her head. She was evaluated at that time and had a head CT that showed no intracranial injury. She had been in her usual state of health prior to seizure. She was brought to [facility] ER and given Keppra and versed. Head CT today again shows no intracranial injury. No significant electrolyte abnormality. After her seizure she remained post ictal and minimally responsive. She was not speaking but did open eyes. Medical History (Last Reviewed 11/30/20 @ 19:58 by Catalina Mcduffie RN) Hypertension (Chronic) Hypercholesteremia (Chronic) Atrial fibrillation (Inactive) Abdominal aortic aneurysm (Chronic) Vertigo Vertigo, benign paroxysmal Benign paroxysmal positional vertigo Chest pain in adult Contusion of foot, right Facial contusion Hand contusion Head injury Patella fracture Radius fracture Surgical History: Surgical History (Last Reviewed 11/30/20 @ 19:58 by Catalina Mcduffie RN) History of appendectomy Onset Date: ~1947 History of basal cell carcinoma excision Onset Date: ~2008 History of cataract extraction Onset Date: ~2006 History of colonoscopy Onset Date: ~2003 History of colonoscopy Onset Date: ~2008 History of hip surgery Onset Date: ~04/13/20 Dr. Kunz: Closed reduction, cephalo-medullary fixation left intertrochanteric femur fracture History of lumpectomy of right breast Onset Date: ~1977 History of total vaginal hysterectomy (TVH) Onset Date: ~1971 Family History: Family History (Last Reviewed 11/30/20 @ 19:58 by Catalnia Mcduffie RN) Father , age 54 DVT (deep venous thrombosis) Mother , age 96 Hypertension CAD (coronary artery disease) Social History: (Last Reviewed 11/30/20 @ 19:59 by Catalina Mcduffie RN) Social History: adopted: No group home: Yes group home comment: [facility] Marital status: lives independently: Yes household members: spouse current occupational 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 Highest level of school completed/degree received: high school graduate Service: No Tobacco: Smoking Status: Never smoker Alcohol: alcohol intake: never Substance Use: substance use type: does not use Dietary Habits: well-balanced diet: daily or most days caffeine: No Amber/Alevism: special amber needs: No Review Of Systems (GEN) - Review of Systems Additional Comments: Unable to perform ROS in current condition Immunizations: IMMUNIZATION HX Immunizations Up to Date Yes History of Influenza Vaccine Yes Hx Pneumococcal Vaccination Yes Allergies/Adverse Reactions: Allergies Allergy/AdvReac Type Severity Reaction Status Date / Time ciprofloxacin [From Cipro] Allergy Verified 10/28/20 11:39 ciprofloxacin HCl Allergy Verified 10/28/20 11:39 [From Cipro] Sulfa (Sulfonamide Allergy Verified 10/28/20 11:39 Antibiotics) Home Medications: HOME MEDICATIONS acetaminophen 500 mg tablet 500 mg PO Q4H PRN #30 tab 05/13/20 [Last Taken Unknown] D-Mannose [Mannxtra] 2,400 gm PO DAILY 10/24/20 [Last Taken Unknown] allopurinol 300 mg tablet 300 mg PO DAILY #28 tab 10/26/20 [Last Taken Unknown] calcium carbonate 600 mg (1,500 mg)-vitamin D3 500 unit capsule 1 cap PO DAILY #28 cap 10/26/20 [Last Taken Unknown] ferrous sulfate 325 mg (65 mg iron) tablet 325 mg PO DAILY #28 tab 10/26/20 [Last Taken Unknown] sennosides 8.6 mg-docusate sodium 50 mg tablet 2 tab PO HS #56 tab 10/26/20 [Last Taken Unknown] nitrofurantoin monohydrate/macrocrystals 100 mg capsule 100 mg PO DAILY 30 Days #30 cap 10/27/20 [Last Taken Unknown] aspirin 325 mg tablet 325 mg PO DAILY #28 tab 11/23/20 [Last Taken Unknown] Exam - Exam Vital Signs: Vital Signs - Last Taken Temp 36.4 C 11/30/20 15:35 Pulse 98 11/30/20 15:35 Resp 28 H 11/30/20 15:35 BP 118/92 H 11/30/20 15:35 Pulse Ox 96 11/30/20 15:35 Constitutional: Present: Obtunded, Other - She does not respond to verbal or physical stimulation, eyes remain closed at this time ENT Exam: Present: other - ecchymosis around orbits from prior fall Respiratory: Present: rhonchi Cardiovascular/Chest: Present: irregularly irregular, edema - 1+ lower extremity Peripheral Pulses: radial (R): 2+, radial (L): 2+ Abdomen: Present: Normal bowel sounds, soft, nondistended Extremity: Present: lower extremity edema - 1+ Neurologic: Present: other - unresponsive, spontaneous breathing and nonpurposeful movement. Does not waken. No focal deficits of extremities noted Diagnostic Studies: Abnormal Lab Results 11/30/20 11/30/20 11/30/20 Range/Units 10:30 10:30 10:33 WBC 12.1 H (4.0-10.5) K/mm3 RBC 4.03 L (4.2-5.4) M/mm3 Hgb 12.4 L (12.5-16.0) gm/dL MCV 101.2 H (78-100) fl MCHC 30.4 L (32-36) g/dl Immature Gran % (Auto) 0.60 H (0.001-0.429) % Immature Gran # (Auto) 0.07 H (0.000-0.0310) K/mm3 Eosinophils % 4.8 H (0.0-3.0) % Lymphocytes # 4.95 H (1.5-3.5) k/mm3 ESR (0-15) mm/hr PT (9.1-10.7) Seconds INR (Anticoag Therapy) (0.92-1.08) INR Sodium (132-142) mmol/L Plasma Sodium (130-142) mmol/L Potassium (3.4-4.6) mmol/L Carbon Dioxide (24-32.6) mmol/L Anion Gap (6.8-13.8) mmol/L Est GFR (Non-Af Amer) (60-130) mL/min Random Glucose (70-110) mg/dL Lactic Acid, Venous 14.6 H* (0.4-2.0) mmol/L ALT (19-67) U/L TSH 5.600 H (0.358-3.74) uIU/mL Urine Protein (NEGATIVE) mg/dL Urine Bacteria (NONE) 11/30/20 11/30/20 11/30/20 Range/Units 10:33 10:33 10:33 WBC (4.0-10.5) K/mm3 RBC (4.2-5.4) M/mm3 Hgb (12.5-16.0) gm/dL MCV (78-100) fl MCHC (32-36) g/dl Immature Gran % (Auto) (0.001-0.429) % Immature Gran # (Auto) (0.000-0.0310) K/mm3 Eosinophils % (0.0-3.0) % Lymphocytes # (1.5-3.5) k/mm3 ESR 18 H (0-15) mm/hr PT 11.5 H (9.1-10.7) Seconds INR (Anticoag Therapy) 1.11 H (0.92-1.08) INR Sodium 144 H (132-142) mmol/L Plasma Sodium 145 H (130-142) mmol/L Potassium 3.1 L (3.4-4.6) mmol/L Carbon Dioxide 17.1 L (24-32.6) mmol/L Anion Gap 26.0 H (6.8-13.8) mmol/L Est GFR (Non-Af Amer) 38 L D (60-130) mL/min Random Glucose 146 H (70-110) mg/dL Lactic Acid, Venous (0.4-2.0) mmol/L ALT 16 L (19-67) U/L TSH (0.358-3.74) uIU/mL Urine Protein (NEGATIVE) mg/dL Urine Bacteria (NONE) 11/30/20 11/30/20 Range/Units 11:16 13:50 WBC (4.0-10.5) K/mm3 RBC (4.2-5.4) M/mm3 Hgb (12.5-16.0) gm/dL MCV (78-100) fl MCHC (32-36) g/dl Immature Gran % (Auto) (0.001-0.429) % Immature Gran # (Auto) (0.000-0.0310) K/mm3 Eosinophils % (0.0-3.0) % Lymphocytes # (1.5-3.5) k/mm3 ESR (0-15) mm/hr PT (9.1-10.7) Seconds INR (Anticoag Therapy) (0.92-1.08) INR Sodium (132-142) mmol/L Plasma Sodium (130-142) mmol/L Potassium (3.4-4.6) mmol/L Carbon Dioxide (24-32.6) mmol/L Anion Gap (6.8-13.8) mmol/L Est GFR (Non-Af Amer) (60-130) mL/min Random Glucose (70-110) mg/dL Lactic Acid, Venous 2.2 H* (0.4-2.0) mmol/L ALT (19-67) U/L TSH (0.358-3.74) uIU/mL Urine Protein 15 H (NEGATIVE) mg/dL Urine Bacteria 1+ H (NONE) Laboratory Results WBC 12.1 K/mm3 (4.0-10.5) H 11/30/20 10:33 RBC 4.03 M/mm3 (4.2-5.4) L 11/30/20 10:33 Hgb 12.4 gm/dL (12.5-16.0) L 11/30/20 10:33 Hct 40.8 % (37.0-47.0) 11/30/20 10:33 MCV 101.2 fl (78-100) H 11/30/20 10:33 MCH 30.8 pg (27-31) 11/30/20 10:33 MCHC 30.4 g/dl (32-36) L 11/30/20 10:33 RDW 13.4 % (11.5-14.0) 11/30/20 10:33 Plt Count 185 K/mm3 (150-450) 11/30/20 10:33 MPV 11.3 fl (8-12.5) 11/30/20 10:33 Immature Gran % (Auto) 0.60 % (0.001-0.429) H 11/30/20 10:33 Immature Gran # (Auto) 0.07 K/mm3 (0.000-0.0310) H 11/30/20 10:33 Neutrophils % 44.6 % (42-75.0) 11/30/20 10:33 Lymphocytes % 41.1 % (20-51) 11/30/20 10:33 Monocytes % 8.3 % (0.0-9) 11/30/20 10:33 Eosinophils % 4.8 % (0.0-3.0) H 11/30/20 10:33 Basophils % 0.6 % (0.0-1.0) 11/30/20 10:33 Nucleated RBC % 0.0 k/mm3 (0-1) 11/30/20 10:33 Neutrophils # 5.4 K/mm3 (1.3-6.0) 11/30/20 10:33 Lymphocytes # 4.95 k/mm3 (1.5-3.5) H 11/30/20 10:33 Monocytes # 1.0 k/mm3 (0.0-1.0) 11/30/20 10:33 Eosinophils # 0.6 k/mm3 (0.0-0.7) 11/30/20 10:33 Absolute Basophils 0.1 k/mm3 (0.0-0.1) 11/30/20 10:33 ESR 18 mm/hr (0-15) H 11/30/20 10:33 PT 11.5 Seconds (9.1-10.7) H 11/30/20 10:33 INR (Anticoag Therapy) 1.11 INR (0.92-1.08) H 11/30/20 10:33 PTT (Early) 25.1 Seconds (24-32) 11/30/20 10:33 Sodium 144 mmol/L (132-142) H 11/30/20 10:33 Plasma Sodium 145 mmol/L (130-142) H 11/30/20 10:33 Potassium 3.1 mmol/L (3.4-4.6) L 11/30/20 10:33 Chloride 104 mmol/L (97-106) 11/30/20 10:33 Carbon Dioxide 17.1 mmol/L (24-32.6) L 11/30/20 10:33 Anion Gap 26.0 mmol/L (6.8-13.8) H 11/30/20 10:33 BUN 19 mg/dL (3-23) 11/30/20 10:33 Creatinine 1.40 mg/dL (0.4-1.4) 11/30/20 10:33 Est GFR (Non-Af Amer) 38 mL/min (60-130) L D 11/30/20 10:33 BUN/Creatinine Ratio 13.6 (9.0-21.6) 11/30/20 10:33 Random Glucose 146 mg/dL (70-110) H 11/30/20 10:33 Lactic Acid, Venous 2.2 mmol/L (0.4-2.0) H* 11/30/20 13:50 Calcium 9.4 mg/dL (7.9-10.9) 11/30/20 10:33 Calcium Adj for Albumin 9.2 mg/dL (8.4-10.2) 11/30/20 10:33 Total Bilirubin 0.5 mg/dL (0.0-1.1) 11/30/20 10:33 AST 18 U/L (0-48) 11/30/20 10:33 ALT 16 U/L (19-67) L 11/30/20 10:33 Alkaline Phosphatase 123 U/L (50-170) 11/30/20 10:33 Troponin I 0.029 ng/mL (0.00-0.10) 11/30/20 10:30 Total Protein 7.4 gm/dL (6.2-8.2) 11/30/20 10:33 Albumin 3.9 gm/dl (3.4-5.0) 11/30/20 10:33 TSH 5.600 uIU/mL (0.358-3.74) H 11/30/20 10:30 Urine Color Yellow 11/30/20 11:16 Urine Appearance Clear (CLEAR) 11/30/20 11:16 Urine pH 6.0 pH (5.0-7.0) 11/30/20 11:16 Ur Specific [place] 1.025 SP.GR. (1.005-1.010) 11/30/20 11:16 Urine Protein 15 mg/dL (NEGATIVE) H 11/30/20 11:16 Urine Glucose (UA) Negative mg/dL (NEGATIVE) 11/30/20 11:16 Urine Ketones Negative mg/dL (NEGATIVE) 11/30/20 11:16 Urine Blood Negative /ul (NEGATIVE) 11/30/20 11:16 Urine Nitrate Negative (NEGATIVE) 11/30/20 11:16 Urine Bilirubin Negative mg/dl (NEGATIVE) 11/30/20 11:16 Urine Urobilinogen Normal EU/dl (NORMAL) 11/30/20 11:16 Ur Leukocyte Esterase Negative /ul (NEGATIVE) 11/30/20 11:16 Urine RBC 0-5 /hpf (0-5) 11/30/20 11:16 Urine WBC 0-5 /hpf (0-5) 11/30/20 11:16 Ur Epithelial Cells 0-5 /hpf (0-5) 11/30/20 11:16 Urine Bacteria 1+ (NONE) H 11/30/20 11:16 Urine Culture Comments No culture indicated 11/30/20 11:16 SARS-CoV-2 (PCR) Not detected (NotDetected) 11/30/20 11:20 Assessment/Plan - Narrative Narrative: Katheryn is an 85 yo female with new onset seizure. I suspect secondary to recent concussion as she has had falls and bruising on her head. Head CT however was negative for intracranial injury. She was given versed and keppra in the ER for seizure. When she arrived to the floor she had another witnessed seizure and was given Ativan 2mg IV which aborted seizure. She is in a unresponsive state. Will plan to continue keppra 500mg IV q12 with IV ativan prn. No significant electrolyte imbalance to cause seizure. Will monitor condition in observation. I discussed comfort cares and hospice with daughter if she does not improve in mental state. The seizure may have worsened her already poor baseline mental status. - Assessment/Plan (1) Seizure Problem: Acute (2) Dementia Problem: Chronic Qualifiers: Dementia type: unspecified type (3) Atrial fibrillation Problem: Chronic Qualifiers: Atrial fibrillation type: permanent Qualified Code(s): I48.21 - Permanent atrial fibrillation
[2020-11-30] MEDS: LORazepam 2 MG/ML DISP.SYRIN IV PRN (19:44)
[2020-12-01] MEDS: LORazepam 2 MG/ML DISP.SYRIN IV PRN ×5 (00:24→14:27)
[2020-12-01 06:13] VITALS: BP 135/57
[2020-12-01] MEDS: ATROPINE SULFATE 50 DROP BTL SL PRN ×2 (11:30→22:11)
[2020-12-01] MEDS ORDERED: GLYCERIN/PROPYLENE GLYCOL 150 DROP BTL EACHEYE PRN (12:44)
[2020-12-01] MEDS ORDERED: MORPHINE SULFATE 4 MG/ML SYRG IV PRN (12:44)
[2020-12-01] MEDS ORDERED: ONDANSETRON HCL/PF 2 MG/ML VIAL IV PRN (12:44)
[2020-12-01] MEDS ORDERED: ALBUTEROL SULFATE 2.5 MG/0.5 ML VIAL.NEB IH PRN (12:44)
[2020-12-01] MEDS ORDERED: BISACODYL 10 MG SUPP.RECT RC PRN (12:44)
[2020-12-01] MEDS ORDERED: CODEINE PHOSPHATE/GUAIFENESIN 5 ML UDC PO PRN (12:44)
[2020-12-01] MEDS: MORPHINE SULFATE 10 MG/0.5 ML SYRINGE PO PRN (18:00)
[2020-12-01] MEDS: LORAZEPAM 2 MG/ML ORAL.CONC PO PRN (18:29)
--- NOTE | 2020-12-01 22:44 | PN ---
Subjective - Date and Time Seen Date: 12/01/20 Time: 16:00 Subjective Narrative: Katheryn has remained unresponsive through the day. Family agreed to comfort cares and hospice. Hospice plans to admit to [facility] tomorrow unless she passes away overnight. Katheryn has appeared comfortable. Objective - Vitals Vitals: Last Vital Signs Temp 37.3 C 12/01/20 06:10 Pulse 89 12/01/20 06:10 Resp 28 H 12/01/20 06:10 BP 135/57 12/01/20 06:10 Pulse Ox 98 12/01/20 06:10 - Exam Constitutional: Present: Obtunded Respiratory: Present: no respiratory distress, rhonchi Cardiovascular/Chest: Present: irregularly irregular Abdomen: Present: Normal bowel sounds, soft, nontender, nondistended Skin Exam: Present: normal color, warm/dry, no cyanosis, other - bruising around orbits Cauti Physician Documentation - Urinary Catheter Management Urethral (Metz) Date of Insertion: 11/30/20 Time of Insertion: 10:59 Assessment/Plan Plan Narrative: Katheryn has not improved over night. Seizure has appeared to cause worsening of her already poor mental state. She is unresponsive. Family agreed to hospice and comfort cares. Plan to discharge to [facility] tomorrow with [facility]. Medications were adjusted to oral for comfort. - Problems/Diagnosis (1) Seizure Problem: Acute (2) Dementia Problem: Chronic Qualifiers: Dementia type: unspecified type (3) Atrial fibrillation Problem: Chronic Qualifiers: Atrial fibrillation type: permanent Qualified Code(s): I48.21 - Permanent atrial fibrillation
[2020-12-02] MEDS: LORAZEPAM 2 MG/ML ORAL.CONC PO PRN ×3 (02:05→09:37)
[2020-12-02] MEDS: MORPHINE SULFATE 10 MG/0.5 ML SYRINGE PO PRN ×4 (02:34→09:37)
[2020-12-02] MEDS ORDERED: ACETAMINOPHEN 650 MG SUPP.RECT RC PRN (02:58)
[2020-12-02] MEDS: ATROPINE SULFATE 50 DROP BTL SL PRN (04:05)
--- NOTE | 2020-12-02 10:28 | DS ---
(1) Seizure Problem: Acute (2) Dementia Problem: Chronic Qualifiers: Dementia type: unspecified type (3) Atrial fibrillation Problem: Chronic Qualifiers: Atrial fibrillation type: permanent Qualified Code(s): I48.21 - Permanent atrial fibrillation Date of Discharge:: 12/02/20 Hospital Course: Katheryn is an 85 yo female admitted for new onset seizure. Following seizures she remained unresponsive and mental status did not improve. She has had some falls recently and had concussion. She has had a couple head CTs all showing no intracranial injury, but I suspect the concussions ultimately caused her seizures. She was started on antiseizure medication in the ER. She had one more seizure on the floor just after admission, but none since. However her mental status remained unresponsive. She has spontaneous breathing and vitals have otherwise been stable, but she is unable to awaken, follow commands, or take in nourishment. With no improvement the family agreed to comfort cares and hospice consultation. She was seen by [facility] who determined based on her rapid decline that inpatient hospice would be appropriate. She will be discharged from her observation status and admitted to inpatient hospice today. This was discussed with family who agrees. Procedures Performed: none Results and Findings: Pending Mircobiology Results 11/30/20 11:53 Blood Blood Culture - Preliminary NO GROWTH 24 HOURS 11/30/20 10:30 Blood Blood Culture - Preliminary NO GROWTH 24 HOURS Lab Pending Results 11/30/20 10:30: Troponin I 0.029, TSH 5.600 H 11/30/20 10:30: Lactic Acid, Venous 14.6 H* 11/30/20 10:33: WBC 12.1 H, RBC 4.03 L, Hgb 12.4 L, Hct 40.8, MCV 101.2 H, MCH 30.8, MCHC 30.4 L, RDW 13.4, Plt Count 185, MPV 11.3, Immature Gran % (Auto) 0.60 H, Immature Gran # (Auto) 0.07 H, Neutrophils % 44.6, Lymphocytes % 41.1, Monocytes % 8.3, Eosinophils % 4.8 H, Basophils % 0.6, Nucleated RBC % 0.0, Neutrophils # 5.4, Lymphocytes # 4.95 H, Monocytes # 1.0, Eosinophils # 0.6, Absolute Basophils 0.1 11/30/20 10:33: ESR 18 H 11/30/20 10:33: PT 11.5 H, INR (Anticoag Therapy) 1.11 H, PTT (Aaron) 25.1 11/30/20 10:33: Sodium 144 H, Plasma Sodium 145 H, Potassium 3.1 L, Chloride 104, Carbon Dioxide 17.1 L, Anion Gap 26.0 H, BUN 19, Creatinine 1.40, Est GFR (Non-Af Amer) 38 L D, BUN/Creatinine Ratio 13.6, Random Glucose 146 H, Calcium 9.4, Calcium Adj for Albumin 9.2, Total Bilirubin 0.5, AST 18, ALT 16 L, Alkaline Phosphatase 123, Total Protein 7.4, Albumin 3.9 11/30/20 11:16: Urine Color Yellow, Urine Appearance Clear, Urine pH 6.0, Ur Specific [place] 1.025, Urine Protein 15 H, Urine Glucose (UA) Negative, Urine Ketones Negative, Urine Blood Negative, Urine Nitrate Negative, Urine Bilirubin Negative, Urine Urobilinogen Normal, Ur Leukocyte Esterase Negative, Urine RBC 0-5, Urine WBC 0-5, Ur Epithelial Cells 0-5, Urine Bacteria 1+ H, Urine Culture Comments No culture indicated 11/30/20 11:20: SARS-CoV-2 (PCR) Not detected 11/30/20 13:50: Lactic Acid, Venous 2.2 H* Discharge Location: [facility] Disposition: Hospice Medical Facility Home Health Agency: [facility] Hospice Condition: Poor Discharge Activity: Activity as tolerated Discharge Diet: NPO Problem Oriented Discharge Instructions to Patient/Family: Seizure, Adult, [id number] Complete Home Medications List: Complete Home Medication List: Acetaminophen [Tylenol Suppository] 650 mg RC Q6H PRN supp.rect 12/02/20 Albuterol Sulfate [Albuterol Sulfate 2.5 MG/0.5ML] 2.5 mg IH Q2H PRN vial.neb 12/02/20 Atropine Sulfate [Isopto Atropine 1%] 2 drop SL Q2H PRN btl 12/02/20 Bisacodyl [Dulcolax Suppository] 10 mg RC PRN PRN supp.rect 12/02/20 Codeine Phosphate/Guaifenesin [Guiatuss AC Syrup] 10 ml PO Q4H PRN udc 03/10/21 Glycerin/Propylene Glycol [Artificial Tears] 2 drop EACHEYE PRN PRN btl 12/02/20
== END 2020-12-02 10:30 | disposition hospice, home (50) ==
LOC: MS 10:14 → ER 10:14 → MS 14:15
PROVIDERS: ADMIT Family Medicine; ATTEND Family Medicine

== ENCOUNTER 2020-12-02 10:30 | Inpatient (IN) ==
[2020-12-02] MEDS ORDERED: GLYCERIN/PROPYLENE GLYCOL 150 DROP BTL EACHEYE PRN (10:49)
[2020-12-02] MEDS ORDERED: CODEINE PHOSPHATE/GUAIFENESIN 5 ML UDC PO PRN (10:49)
[2020-12-02] MEDS ORDERED: LORazepam 2 MG/ML DISP.SYRIN IV PRN (10:49)
[2020-12-02] MEDS ORDERED: BISACODYL 10 MG SUPP.RECT RC PRN (10:49)
[2020-12-02] MEDS ORDERED: ALBUTEROL SULFATE 2.5 MG/0.5 ML VIAL.NEB IH PRN (10:49)
[2020-12-02] MEDS ORDERED: ONDANSETRON HCL/PF 2 MG/ML VIAL IV PRN (10:49)
[2020-12-02] MEDS ORDERED: ATROPINE SULFATE 50 DROP BTL SL PRN (10:49)
[2020-12-02] MEDS: MORPHINE SULFATE 10 MG/ML SYRG IV PRN ×4 (12:04→16:41)
--- NOTE | 2020-12-02 15:18 | HP ---
Chief Complaint - Chief Complaint Date of Service: 12/02/20 Time of Service: 11:00 Chief Complaint: Hospice History of Present Illness: Katheryn is an 85 yo female admitted to inpatient hospice due to unresponsiveness following seizure. Prior to the seizure she had declining dementia and had several falls with concussion. Since having the seizure she has been unresponsive and has shown no improvement. Hospice was consulted and agreed to admit for inpatient hospice for comfort cares. Medical History (Last Reviewed 12/02/20 @ 10:49 by Chelsea Cancino RN) Hypertension (Chronic) Hypercholesteremia (Chronic) Atrial fibrillation (Chronic) Abdominal aortic aneurysm (Chronic) Vertigo Vertigo, benign paroxysmal Benign paroxysmal positional vertigo Chest pain in adult Contusion of foot, right Facial contusion Hand contusion Head injury Patella fracture Radius fracture Surgical History: Surgical History (Last Reviewed 12/02/20 @ 10:49 by Chelsea Cancino RN) History of appendectomy Onset Date: ~1947 History of basal cell carcinoma excision Onset Date: ~2008 History of cataract extraction Onset Date: ~2006 History of colonoscopy Onset Date: ~2003 History of colonoscopy Onset Date: ~2008 History of hip surgery Onset Date: ~04/13/20 Dr. Kunz: Closed reduction, cephalo-medullary fixation left intertrochanteric femur fracture History of lumpectomy of right breast Onset Date: ~1977 History of total vaginal hysterectomy (TVH) Onset Date: ~1971 Family History: Family History (Last Reviewed 12/02/20 @ 10:49 by Chelsea Cancino RN) Father , age 54 DVT (deep venous thrombosis) Mother , age 96 Hypertension CAD (coronary artery disease) Social History: (Last Reviewed 12/02/20 @ 10:50 by Chelsea Cancino RN) Social History: adopted: No penitentiary: Yes penitentiary comment: [place] Marital status: lives independently: Yes household members: spouse 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 occupational 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 Highest level of school completed/degree received: high school graduate Service: No Tobacco: Smoking Status: Never smoker Alcohol: alcohol intake: never Substance Use: substance use type: does not use Dietary Habits: well-balanced diet: daily or most days caffeine: No Amber/Mandaen: special amber needs: No Review Of Systems (GEN) - Review of Systems Additional Comments: Unable to perform due to patient condition Immunizations: IMMUNIZATION HX Immunizations Up to Date Yes History of Influenza Vaccine Yes Hx Pneumococcal Vaccination Yes Allergies/Adverse Reactions: Allergies Allergy/AdvReac Type Severity Reaction Status Date / Time ciprofloxacin [From Cipro] Allergy Verified 12/02/20 10:50 ciprofloxacin HCl Allergy Verified 12/02/20 10:50 [From Cipro] Sulfa (Sulfonamide Allergy Verified 12/02/20 10:50 Antibiotics) Home Medications: HOME MEDICATIONS Acetaminophen [Tylenol Suppository] 650 mg RC Q6H PRN supp.rect 12/02/20 [Last Taken Unknown] Albuterol Sulfate [Albuterol Sulfate 2.5 MG/0.5ML] 2.5 mg IH Q2H PRN vial.neb 12/02/20 [Last Taken Unknown] Atropine Sulfate [Isopto Atropine 1%] 2 drp SL Q2H PRN btl 12/02/20 [Last Taken Unknown] Bisacodyl [Dulcolax Suppository] 10 mg RC PRN PRN supp.rect 12/02/20 [Last Taken Unknown] Codeine Phosphate/Guaifenesin [Guiatuss AC Syrup] 10 ml PO Q4H PRN udc 12/02/20 [Last Taken Unknown] Glycerin/Propylene Glycol [Artificial Tears] 2 drp EACHEYE PRN PRN btl 12/02/20 [Last Taken Unknown] Exam - Exam Constitutional: Present: Obtunded Respiratory: Present: rhonchi Cardiovascular/Chest: Present: irregularly irregular Peripheral Pulses: radial (R): 2+, radial (L): 2+ Abdomen: Present: soft, hypoactive Extremity: Present: normal inspection Skin Exam: Present: other - ecchymosis of orbits and forehead Neurologic: Present: other - unresponsive, has spontaneous breathing Assessment/Plan - Assessment/Plan (1) Comfort measures only status Assessment: Katheryn is an 85 yo female to be admitted to inpatient hospice due to unresponsiveness following seizure. She will receive comfort cares and [facility] will follow along. She will have morphine and lorazepam via IV. Anticipate hours of life expectancy. Problem: Acute (2) Admission for hospice care Problem: Acute (3) Dementia Problem: Chronic Qualifiers: Dementia type: unspecified type (4) Seizure Problem: Acute (5) Atrial fibrillation Problem: Chronic Qualifiers: Atrial fibrillation type: permanent
[2020-12-02 17:47] VITALS: BP 113/60
--- NOTE | 2020-12-02 22:49 | DS ---
Discharge Summary - Provider Primary Care Provider: Saul Garcia Admitting Clinician: Saul Garcia Attending Physician on Admission: Saul Garcia - Date and Time Date of : 12/02/20 Time of : 17:25 - Diagnosis/Cause of (1) Comfort measures only status Problems: Acute (2) Admission for hospice care Problems: Acute (3) Dementia Problems: Chronic (4) Seizure Problems: Acute (5) Atrial fibrillation Problems: Chronic - Summary Details (narrative): Katheryn was an 85 yo female admitted to inpatient hospice due to unresponsive condition following seizure. She had failed to regain consciousness after new onset seizures. Seizures suspected to have been caused from concussion. She was initially started on Keppra and given versed and ativan. This appeared to prevent any further seizures but there was no improvement. Hospice was consulted and recommended inpatient hospice. She was admitted to inpatient hospice and made comfortable with IV morphine and ativan prn. She remained comfortable and at 1725 on 12/02/20 with family. Procedures Performed: none - Additional Data Confirmation of as documented by pronouncing clinician: no pulse, no respirations, no heart sounds, pupils fixed and dilated Family: at bedside Practitioner(Attending/PCP) notified: Yes Was code activated: No Autopsy requested: No Permastone Mechanic notified: No Organ Bank notified: No Advance Directives: Yes Hospice patient: Yes
== END 2020-12-02 17:25 | disposition expired | DRG 884 ==
LOC: MS 10:30
PROVIDERS: ADMIT Family Medicine; ATTEND Family Medicine